=== PATIENT | female | born 1935 | race Caucasian/White ===

== ENCOUNTER 2019-03-23 16:29 | Emergency (ER) | payer MEDICARE, SELFPAY ==
[2019-03-23 16:30] VITALS: BP 140/90; PULSE 84; RESP 16; TEMP 36.8; O2SAT 96; BMI 29.2
--- NOTE | 2019-03-23 16:51 | ED.VIS.GEN ---
History of Present Illness Chief Complaint: Lower Extremity Injury Narrative: Patient presenting due to left hip pain. Patient states that she has been having chronic issues with this for quite some time, typically was able to take Tylenol to help with this. Patient states that since yesterday she is been having increasing pain issues with this. She reports that there are continuous aching pain in her left hip that is worse with weightbearing and causing her to need to use a cane or a walker. She denies any fevers. She denies any chills or night sweats recent injections or surgeries. This is her qagan tayagungin hip. Review of systems otherwise negative. Past Medical History - Allergies and Home Meds Allergies/Adverse Reactions: Allergies lisinopril Allergy (Verified 03/23/19 16:50) Other Sulfa (Sulfonamide Antibiotics) Allergy (Verified 03/23/19 16:32) Hives erythromycin base Adverse Reaction (Verified 03/23/19 16:32) Nausea/Vom/Diarrhea ketorolac tromethamine [From Toradol] Adverse Reaction (Verified 03/23/19 16:32) Nausea/Vom/Diarrhea morphine Adverse Reaction (Verified 03/23/19 16:32) Nausea/Vom/Diarrhea Primary Care Physician: Kareem Granados MD [COURTESY STAFF PHYSICIAN] - Past Medical History: - - COPD Surgical History: - - inguinal hernia repair, tendon repair right ankle Smoking Status: Former smoker - Family History Paternal Family History: Reports: No pertinent history Maternal Family History: Reports: No pertinent history Review of Systems General: Denies: Fever Musculoskeletal: Reports: Extremity Pain Physical Exam Vital Signs/Narrative: Vital Signs Temp Pulse Resp BP Pulse Ox 03/23/19 16:30 98.2 F 84 16 140/90 H 96 General: Well nourished, Well developed, No Acute Distress Head: Normocephalic, Atraumatic Eyes: Perrl, EOMI ENT: Moist mucous membranes, No rhinorrhea Neck: Supple, Nontender Cardiovascular: Regular rate, Regular rhythm, No murmurs Respiratory: No distress, CTA bilaterally, Chest nontender Abdomen: Soft, Nontender, Nondistended, Normal bowel sounds Extremities: - - Lower extremity exam demonstrates some pain over the greater trochanter with palpation. Normal flexion extension internal and external rotation of the hip. No evidence of warmth or erythema. No pain no or limited range of motion of the knee ankle or foot. Normal distal pulses. Skin: Normal color, No rash Neurological: Alert, Oriented x3, Cranial nerves II-XII grossly intact, Normal Strength, Normal Sensation Psychological: Normal affect, Normal Mood Diagnostic/Tx/Re-eval Chest X-Ray - ED: - - 3 view of the hip by my personal interpretation as well as radiology shows degenerative changes no evidence of fracture - Medical Decision Making Patient presented secondary to hip pain. She was given 250 mg of Naprosyn. X-rays show degenerative changes. Patient has no signs of trauma, no symptoms of infection. At this point I feel the patient likely would benefit from low-dose anti-inflammatories and orthopedic follow-up. She will be given orthopedics on-call and discharge. ED Disposition - Plan for ED Patient: Disposition: Home or Assisted Living Diagnosis: Arthritis of left hip Instructions: ED Osteoarthritis Prescriptions: Naproxen 250 mg PO BID #20 tab Prescription Printed Referrals: Son Cabrera DO [STAFF PHYSICIAN] - 1-2 Weeks
--- NOTE | 2019-03-23 17:00 | RAD_ITS ---
STUDY: X-RAY - PELVIS AND LEFT HIP REASON FOR EXAM: Female, 84 years old. Pain, no trauma TECHNIQUE: 3 views of the pelvis and hip. COMPARISON: None. FINDINGS: There is a non-specific bowel gas pattern. Normal visualized soft tissue structures. There is diffuse demineralization of the osseous structures. There is narrowing with cortical sclerosis and osteophyte formation of the sacroiliac joint consistent with degenerative osteoarthritic changes. Normal bilateral superior and inferior pubic rami. Normal pubic symphysis. Normal bilateral ischial tuberosities. Normal visualized femoral head. Normal acetabulum. There is moderate articular joint space narrowing of the hip. RAD/HIP, UNI W/ Pelvis 2-3 Views IMPRESSION: Age consistent degenerative changes, no acute fracture or suspicious osseous lesion. However, and pelvic fractures in patients of this age can be subtle, if there is strong clinical suspicion of a fracture, recommend further evaluation with CT Electronically Signed: Todd Davila MD at 17:22 EDT , Service support ,
[2019-03-23] MEDS: Naproxen 250 MG Tablet PO (17:03)
[2019-03-23 18:19] VITALS: BP 108/86; PULSE 79; RESP 16; O2SAT 96
== END 2019-03-23 18:18 | disposition home or self-care (01) ==
PROVIDERS: Emergency Provider Emergency Medicine; Family Provider Family Medicine; PCP Family Medicine
DX: M16.12 Unilateral primary osteoarthritis, left hip (principal); J44.9 Chronic obstructive pulmonary disease, unspecified; Z79.899 Other long term (current) drug therapy; Z88.2 Allergy status to sulfonamides; Z88.1 Allergy status to other antibiotic agents; Z88.8 Allergy status to other drugs, medicaments and biological substances; Z87.891 Personal history of nicotine dependence
CPT/HCPCS: 73502; 99282

== ENCOUNTER 2021-06-10 10:40 | Day surgery (SDC) | payer MEDICARE, SELFPAY ==
[2021-06-10] MEDS: Lactated Ringers 1,000 ML 15 ML IV (10:50)
[2021-06-10 11:05] VITALS: BP 134/83; PULSE 78; RESP 16; TEMP 36.9; O2SAT 95; BMI 28.5
--- NOTE | 2021-06-10 12:45 | CALC_PTH ---
PATIENT: AMENA NEWTON [place] [facility] [place][id number] AGE/SX: 86/F ROOM: RE06/10/[address]: Dr. Artem Camacho MD : [id number] BED: DIS: 06/10/2021 SPEC #: [id number] RECD: 06/10/21 15:46 STATUS: MORELIA CARRIZALES #: [id number] SCHUYLER: 06/10/21 12:[address]: Artem Camacho DEPT: SURGICAL PATHOLOGY RECD BY: Maryann Grissom ENTERED: 06/11/21 09:08 SP TYPE: Calculi OTHR DR: Dr. Jose Jc MD Tissues: CALCULI Procedures: Surgery Specimen Level I HEADER OPERATION: Cysto, ureteroscopy, laser stone, stent PRE-OP DIAGNOSIS: Left ureteral calculus TISSUE SUBMITTED: Left ureteral calculus fragments of analysis GROSS DIAGNOSIS Left ureteral calculus, removal: Fragments of unremarkable calculi. AM:bart 06/12/2021 COMMENT The calculus is submitted in its entirety for chemical stone analysis. The results from this study will be reported separately. GROSS DESCRIPTION Received without fixative labeled with the patient's name and designated left ureteral calculus fragments. The specimen consists of two irregular fragments of dark fierro calculi measuring in aggregate 0.2 x 0.1 x <0.1 cm. The entire specimen is submitted for stone analysis. / AM:bart 06/11/2021 CPT: 00071
--- NOTE | 2021-06-10 12:48 | PCM.HP.STD ---
HPI - General HPI Narrative AMENA NEWTON, is a 86 F who presents for treatment of a left ureteral calculu, s/p stent placement at [facility], was admitted for sepsis. [facility] Medical History (Updated 06/09/21 @ 09:56 by Catia Ignacio) Asthma CPAP (continuous positive airway pressure) dependence Depression Former smoker Gastric reflux History of echocardiogram History of irregular heartbeat History of steroid therapy History of stress test Hypertension Kidney stones Migraine headache Post-menopausal Pulmonary hypertension Septic shock Shortness of breath on exertion Sleep apnea Thyroid disease Walker as ambulation aid Wears hearing aid Home Medications esomeprazole magnesium [Nexium] 40 mg PO DAILY 11/06/14 [History Last Taken 11/14/15 07:00] sertraline 100 mg PO DAILY 11/06/14 [History Last Taken Unknown] PreserVision AREDS-2 1 ea PO BID 03/15/17 [History Last Taken Unknown] melatonin-pyridoxine HCl (B6) 1 ea PO QHS 03/15/17 [History Last Taken Unknown] acetaminophen [Tylenol] 650 mg PO Q8 tab 03/18/17 [Rx Last Taken Unknown] sumatriptan succinate 100 mg PO .X1 PRN 03/23/19 [History Last Taken Unknown] albuterol sulfate 2 puff INHALATION BID PRN 06/09/21 [History Last Taken Unknown] fluticasone furoate-vilanterol [Breo Ellipta] 1 inh INHALATION QHS 06/09/21 [History Last Taken Unknown] levothyroxine 50 mcg PO DAILY 06/09/21 [History Last Taken Unknown] multivitamin [Hair,Nails and Skin Vitamin] 1 tab PO DAILY 06/09/21 [History Last Taken Unknown] pumgkcqzikkr-xrej-ljtla acid [Centrum] 1 tab PO DAILY 06/09/21 [History Last Taken Unknown] naproxen 40 mg PO BID 06/09/21 [History Last Taken Unknown] polyethylene glycol 3350 [Miralax] 17 g PO DAILY 06/09/21 [History Last Taken Unknown] valsartan 80 mg PO DAILY 06/09/21 [History Last Taken Unknown] acetaminophen [Tylenol] 325 mg PO Q6H PRN #14 tab 06/10/21 [Rx Last Taken Unknown] ciprofloxacin HCl [Cipro] 250 mg PO BID #6 tab 06/10/21 [Rx Last Taken Unknown] Allergy/AdvReac Type Severity Reaction Status Date / Time lisinopril Allergy Other Verified 06/10/21 10:48 Sulfa (Sulfonamide Allergy Hives Verified 06/10/21 10:48 Antibiotics) erythromycin base AdvReac Nausea/Vom/ Verified 06/10/21 10:48 Diarrhea ketorolac tromethamine AdvReac Nausea/Vom/ Verified 06/10/21 10:48 [From Toradol] Diarrhea morphine AdvReac Nausea/Vom/ Verified 06/10/21 10:48 Diarrhea Surgical History (Updated 06/09/21 @ 09:56 by Catia Ignacio) History of total knee replacement Hx of section Hx of colonoscopy Hx of cystoscopy Hx of hysterectomy Hx of surgical procedure Hx of surgical procedure Hx of surgical procedure Hx of surgical procedure Social History (Updated 12/20/17 @ 12:[address] Cookie Barry, DO) Smoking Status: Former smoker Vital Signs Vital Signs Vital Signs: 06/10/21 11:05 Temperature 98.5 F Temperature Source Temporal Pulse Rate 78 Respiratory Rate 16 Respiratory Pattern Normal Blood Pressure 134/83 H Blood Pressure Mean 100 Blood Pressure Source Monitor Blood Pressure Position Semi-Fowlers Blood Pressure Location Left Arm Pulse Ox 95 Oxygen Delivery Method Room Air Weight Weight: 66.224 kg Body Mass Index (BMI) 28.5
--- NOTE | 2021-06-10 12:48 | PCM.DC ---
Discharge Instructions Diet Discharge Diet: No restrictions Activity Discharge Activity: Return to Normal Activity and May Not Drive (while taking narcotic pain medications.) Dressing / Incision Call your doctor if you observe: Fever of 101 or Higher Follow Up Care Please Follow Up With: Artem Camacho MD When: Call [phone] for an appointment Test Results: Test results from this visit will be discussed in further detail at your follow-up appointment, if applicable. Discharge Plan Admission Primary Reason for Your Visit: Laser of left kidney stone Attending Provider: Artem Camacho Primary Care Provider: Jose Jc Discharge Orders/Prescriptions Prescriptions: New acetaminophen [Tylenol] 325 mg tablet 325 mg PO Q6H PRN (Reason: fever or pain) Qty: 14 RF: 0 ciprofloxacin HCl [Cipro] 250 mg tablet 250 mg PO BID Qty: 6 RF: 0 No Action sertraline 100 MG tablet 100 mg PO DAILY RF: 0 esomeprazole magnesium [Nexium] 20 MG capsule 40 mg PO DAILY RF: 0 melatonin-pyridoxine HCl (B6) 1 EACH tablet, IR and ER, biphasic 1 ea PO QHS RF: 0 PreserVision AREDS-2 1 EACH capsule 1 ea PO BID RF: 0 acetaminophen [Tylenol] 325 MG tablet 650 mg PO Q8 RF: 0 sumatriptan succinate 100 MG tablet 100 mg PO .X1 PRN RF: 0 multivitamin [Hair,Nails and Skin Vitamin] Tablet 1 tab PO DAILY RF: 0 valsartan 80 mg tablet 80 mg PO DAILY RF: 0 levothyroxine 50 mcg tablet 50 mcg PO DAILY RF: 0 albuterol sulfate 90 mcg/actuation HFA aerosol inhaler 2 puff INHALATION BID PRN (Reason: ASTHMA) RF: 0 Centrum 18-400 mg-mcg Tablet 1 tab PO DAILY RF: 0 Breo Ellipta 100-25 mcg/dose blister with device 1 inh INHALATION QHS RF: 0 polyethylene glycol 3350 [Miralax] 17 GM powder in packet 17 g PO DAILY RF: 0 naproxen 250 MG tablet 40 mg PO BID RF: 0 Referrals / Follow Up: Artem Camacho MD [STAFF PHYSICIAN] - Jose Jc MD [Primary Care Provider] - Disposition Disposition (needs filled in before D/C Order can be placed): Home, Self Care
--- NOTE | 2021-06-10 13:27 | OP.PCM_ITS ---
Report of Operation Date of Procedure: 06/10/21 Pre-Operative Diagnosis: Distal left ureteral calculi status post stent placeme nt Post-Operative Diagnosis: Same Surgery/Procedure Performed:: Left ureteroscopy laser lithotripsy of stone and removal of stent Description of Surgical Findings:: 86-year-old female was found to have sepsis she underwent cystoscopy and stent placement for urosepsis she now presents for treatment of the stone in the distal left ureter she had a stent placed for the obstructing stone. Patient was taken back to the operating room after smooth induction of general anesthesia she was placed in dorsolithotomy position. The urethra vaginal area prepped and draped in usual sterile fashion went into the bladder with a 21 [place] rigid cystourethroscope grabbed the existing stent from the left side pulled out the meatus advance a 0.038 wire up the left kidney next to the wire I went in with a SlimLine rigid ureteroscope and encountered a 6 mm stone in the distal left ureter I then used a 270 ?m laser fiber and laser the stone little tiny pieces and all the pieces then passed into the bladder we then captured one of the pieces and sent off for analysis. I then inspected all the way up to the kidney there is no up another up there is no obstruction along the course of the ureter no other major stones were seen. I remove the wire I did not put a stent back in since she had a wide open ureter patient's anesthetic was reversed and she was taken back to PACU in good condition she will follow-up about 6 weeks for checkup. Surgeon: brenda Type of Anesthesia: General Drains: none Admit VTE Documentation VTE Present on Admission: No VTE Mechan Device Prophylaxis: SCD's
[2021-06-10 13:45] VITALS: BP 121/61; BP 134/83; PULSE 70; RESP 16; TEMP 36.5; O2SAT 97
[2021-06-10 14:00] VITALS: BP 103/61; BP 134/83; PULSE 67; RESP 16; O2SAT 98
[2021-06-10 14:15] VITALS: BP 113/68; BP 134/83; PULSE 58; RESP 16; O2SAT 97
[2021-06-10 14:30] VITALS: BP 127/60; BP 134/83; PULSE 64; RESP 16; TEMP 36.7; O2SAT 98
[2021-06-10 15:15] VITALS: BP 134/83; BP 138/82; PULSE 111; RESP 16; TEMP 36.8; O2SAT 96
== END 2021-06-10 15:27 | disposition home or self-care (01) ==
LOC: SDC 10:42 → AC 10:44
PROVIDERS: PCP Family Medicine; Referring Provider Urology; Visit Provider Urology
PROC: 0TJ98ZZ Inspection of Ureter, Via Natural or Artificial Opening Endoscopic (ICD-10-PCS; CPT 52352; principal; 2021-06-10 12:35)
DX: N20.1 Calculus of ureter (principal); I10 Essential (primary) hypertension; I27.20 Pulmonary hypertension, unspecified; E03.9 Hypothyroidism, unspecified; J45.909 Unspecified asthma, uncomplicated; G47.30 Sleep apnea, unspecified; K21.9 Gastro-esophageal reflux disease without esophagitis; F32.A Depression, unspecified; F41.9 Anxiety disorder, unspecified; Z78.0 Asymptomatic menopausal state; Z79.1 Long term (current) use of non-steroidal anti-inflammatories (NSAID); Z79.51 Long term (current) use of inhaled steroids; Z79.890 Hormone replacement therapy; Z79.899 Other long term (current) drug therapy; Z87.891 Personal history of nicotine dependence; Z96.659 Presence of unspecified artificial knee joint
CPT/HCPCS: 52353; 82360; 88300; J7120; C1769; J2405

== ENCOUNTER 2022-01-05 11:13 | Emergency (ER) | payer MEDICARE, SELFPAY ==
[2022-01-05 11:14] VITALS: BP 181/102; PULSE 71; RESP 16; TEMP 36.8; O2SAT 98; BMI 29.9
--- NOTE | 2022-01-05 11:35 | EX.ED.DYSGE1 ---
HPI History of Present Illness Chief Complaint: Flank Pain Informant: patient and family Narrative Narrative: 86-year-old female presenting to the emergency room with right flank pain. Patient states symptoms began today she has had a prior history of kidney stones requiring surgery. She denies any changes in urination or bowel movements. She denies any fevers or vomiting. She notes that she has a history of scoliosis and initially thought that perhaps pain was related to her back. [facility] Medical History Asthma CPAP (continuous positive airway pressure) dependence Depression Former smoker Gastric reflux History of echocardiogram History of irregular heartbeat History of steroid therapy History of stress test Hypertension Kidney stones Migraine headache Post-menopausal Pulmonary hypertension Septic shock Shortness of breath on exertion Sleep apnea Thyroid disease Walker as ambulation aid Wears hearing aid Home Medications esomeprazole magnesium 20 mg capsule,delayed release (Nexium) 40 mg PO DAILY 11/06/14 [History Last Taken 11/14/15 07:00] sertraline 100 mg tablet 100 mg PO DAILY 11/06/14 [History Last Taken Unknown] melatonin ER 10 mg-pyridoxine HCl (B6) 10 mg tab, immed-extend release 1 ea PO QHS 03/15/17 [History Last Taken Unknown] vit C 250 mg-vit E 90 mg-zinc 40 mg-copper 1 px-rytvrq-kexcez capsule (PreserVision AREDS-2) 1 ea PO BID 03/15/17 [History Last Taken Unknown] acetaminophen 325 mg tablet (Tylenol) 650 mg PO Q8 03/18/17 [Rx Last Taken Unknown] sumatriptan succinate 100 mg tablet 100 mg PO .X1 PRN 03/23/19 [History Last Taken Unknown] albuterol sulfate 90 mcg/actuation aerosol inhaler 2 puff inhalation BID PRN ASTHMA 06/09/21 [History Last Taken Unknown] fluticasone furoate 100 mcg-vilanterol 25 mcg/dose inhalation powder (Breo Ellipta) 1 inh inhalation QHS 06/09/21 [History Last Taken Unknown] levothyroxine 50 mcg tablet 50 mcg PO DAILY 06/09/21 [History Last Taken Unknown] multivitamin 1 tab PO DAILY 06/09/21 [History Last Taken Unknown] multivitamin-ferrous fumarate-folic acid 18 mg-400 mcg tablet (Centrum) 1 tab PO DAILY 06/09/21 [History Last Taken Unknown] naproxen 250 mg tablet 40 mg PO BID 06/09/21 [History Last Taken Unknown] polyethylene glycol 3350 17 gram oral powder packet (Miralax) 17 g PO DAILY 06/09/21 [History Last Taken Unknown] valsartan 80 mg tablet 80 mg PO DAILY 06/09/21 [History Last Taken Unknown] acetaminophen 325 mg tablet (Tylenol) 325 mg PO Q6H PRN fever or pain #14 tabs 06/10/21 [Rx Last Taken Unknown] Allergy/AdvReac Type Severity Reaction Status Date / Time lisinopril Allergy Other Verified 01/05/22 11:15 Sulfa (Sulfonamide Allergy Hives Verified 01/05/22 11:15 Antibiotics) erythromycin base AdvReac Nausea/Vom/ Verified 01/05/22 11:15 Diarrhea ketorolac tromethamine AdvReac Nausea/Vom/ Verified 01/05/22 11:15 [From Toradol] Diarrhea morphine AdvReac Nausea/Vom/ Verified 01/05/22 11:15 Diarrhea Surgical History History of total knee replacement Hx of section Hx of colonoscopy Hx of cystoscopy Hx of hysterectomy Hx of surgical procedure Hx of surgical procedure Hx of surgical procedure Hx of surgical procedure Social History Smoking Status: Former smoker ROS ROS ED Constitutional Constitutional ED: Denies chills or weight loss Eyes Eyes: Denies change in vision or diplopia ENT ENT ED: Denies ear pain, rhinorrhea or sore throat Cardiovascular Cardiovascular: Denies chest pain, orthopnea, palpitations or racing heartbeat Respiratory/Chest Respiratory/Chest: Denies cough, dyspnea or orthopnea Gastrointestinal Gastrointestinal: Reports nausea; Denies abdominal pain, diarrhea or vomiting Genitourinary Genitourinary ED: Denies dysuria, hematuria or urinary frequency Musculoskeletal Musculoskeletal: Reports other Details: Right flank pain ; Denies arthralgias or myalgias Integumentary Denies abscess or rash Neurologic Neurologic: Denies headache(s) or weakness Psychiatric Psychiatric: Denies anxiety, depression, suicidal ideation or suicidal thoughts Endocrine Endocrinology: Denies polydipsia, polyphagia or polyuria Allergic/Immunologic Allergic/Immunologic ED: Denies mouth swelling, tongue swelling or urticaria EXAM Physical Exam Const Vital Signs: 01/05/22 11:14 01/05/22 13:20 Temperature 98.3 F Temperature Source Temporal Pulse Rate 71 65 Respiratory Rate 16 16 Blood Pressure 181/102 H 140/73 H Blood Pressure Mean 128 95 Pulse Ox 98 96 Oxygen Delivery Method Room Air Room Air Positive well nourished and well developed General Appearance ED: well developed HEENT Reports normocephalic, head/scalp atraumatic and moist mucous membranes Eyes PERRL and EOMs intact bilaterally Neck no lymphadenopathy, supple and no JVD Resp normal respiratory effort and clear to auscultation bilaterally Cardio regular rate, regular rhythm and no murmurs GI normal to inspection, nondistended, normoactive bowel sounds and non-tender Palpation: soft Back/Spine normal ROM General Back: CVA tenderness right Extremity normal to inspection General Extremety ED: Negative for edema General Extremity: Negative for edema Neuro oriented x3 and CN's II-XII intact bilaterally Sensorium / Orientation: alert Motor Exam: strength 5/5 throughout Psych mental status grossly normal Mood & Affect: Negative for depressed or tearful Skin no rashes or lesions noted and no wounds MDM MDM MDM Narrative Medical decision making narrative: White count at 12.7. Creatinine 0.82. Urinalysis is normal. CT of the abdomen pelvis demonstrates 2 to 3 mm mid ureteral stone on the left with some mild associated hydronephrosis. However the patient's pain is on the right. I do not see evidence of sepsis or infection. I will write for the patient have pain medication and nausea medicine. Return if worsening or concerns Lab Data Attestation: I reviewed the patient's lab results. Labs: Laboratory Results - last 24 hr 01/05/22 01/05/22 01/05/22 12:15 12:20 12:20 WBC 12.7 H RBC 5.00 Hgb 14.7 Hct 45.6 MCV 91.2 MCH 29.4 MCHC 32.2 RDW Std Deviation 50.0 H RDW Coeff of John 14.8 H Plt Count 319 MPV 9.3 Immature Gran % (Auto) 1.000 H Neut % (Auto) 68.7 Lymph % (Auto) 22.6 [place] % (Auto) 6.4 Eos % (Auto) 0.7 Baso % (Auto) 0.6 Absolute Neuts (auto) 8.7 H Absolute Lymphs (auto) 2.88 Nucleated RBC % 0 Sodium 140 Potassium 4.1 Chloride 104 Carbon Dioxide 31.0 Anion Gap 5 BUN 14 Creatinine 0.82 Estim Creat Clear Calc 36.03 Est GFR (MDRD) Af Amer 86 Est GFR (MDRD) Non-Af 71 BUN/Creatinine Ratio 17.2 Glucose 105 Calcium 9.1 Urine Color Straw Urine Clarity Clear Urine pH 7.0 Ur Specific [place] 1.005 Urine Protein Negative Urine Glucose (UA) Normal Urine Ketones Negative Urine Occult Blood Negative Urine Nitrite Negative Urine Bilirubin Negative Urine Urobilinogen Normal Ur Leukocyte Esterase Negative Urine RBC 0 SEEN Urine WBC 0 SEEN Ur Squamous Epith Cells 0-5 SEEN Urine Bacteria 0 SEEN Urine Mucus 0 SEEN Radiography Diagnostic Testing: Clinical Impression(s) from Imaging Studies Abdomen/Pelvis CT 01/05/22 12:25 IMPRESSION: 3.3 mm calculus in the midportion of the left ureter causing mild degree of left hydronephrosis. Electronically Signed: Amauri Garg MD at 13:07 EDT , Discharge Plan Triage Chief Complaint: Flank Pain ED Provider: Cordell Rose Dx/Rx/DC Orders Prescriptions: No Action sertraline 100 MG tablet 100 mg PO DAILY esomeprazole magnesium [Nexium] 20 MG capsule 40 mg PO DAILY melatonin-pyridoxine HCl (B6) 1 EACH tablet, IR and ER, biphasic 1 ea PO QHS PreserVision AREDS-2 1 EACH capsule 1 ea PO BID acetaminophen [Tylenol] 325 MG tablet 650 mg PO Q8 0RF sumatriptan succinate 100 MG tablet 100 mg PO .X1 PRN multivitamin [Hair,Nails and Skin Vitamin] Tablet 1 tab PO DAILY valsartan 80 mg tablet 80 mg PO DAILY Label Comments: take 1 tablet by mouth once daily levothyroxine 50 mcg tablet 50 mcg PO DAILY Label Comments: take 1 tablet by mouth once daily albuterol sulfate 90 mcg/actuation HFA aerosol inhaler 2 puff INHALATION BID PRN (Reason: ASTHMA) Label Comments: inhale 2 puffs by mouth four times a day if needed Centrum 18-400 mg-mcg Tablet 1 tab PO DAILY fluticasone furoate-vilanterol [Breo Ellipta] 100-25 mcg/dose blister with device 1 inh INHALATION QHS Label Comments: inhale 1 puff by mouth and INTO THE LUNGS once daily WITH GOOD ORAL CARE AFTER USE polyethylene glycol 3350 [Miralax] 17 GM powder in packet 17 g PO DAILY naproxen 250 MG tablet 40 mg PO BID acetaminophen [Tylenol] 325 mg tablet 325 mg PO Q6H PRN (Reason: fever or pain) Qty: 14 0RF Primary Care Provider: Jose Jc Referrals: Jose Jc MD [Primary Care Provider] -
--- NOTE | 2022-01-05 12:25 | CT_ITS ---
STUDY: CT ABDOMEN AND PELVIS WITHOUT CONTRAST REASON FOR EXAM: Female, 86 years old. Kidney Stone RADIATION DOSAGE (If Supplied By Facility): CTDIvol = ( 10.74 ) mGy, DLP = ( 496.13 ) mGycm TECHNIQUE: Transaxial images were obtained from the dome of the diaphragm to the symphysis pubis without oral contrast, and without intravenous contrast. Sagittal and coronal images were reconstructed. Individualized dose optimization techniques were used for this CT. COMPARISON: Comparison is made with prior study dated 10/25/2016. FINDINGS: The visualized lung bases are unremarkable. Coronary artery calcification. Normal liver. Normal gallbladder and extrahepatic biliary system. Normal spleen. Normal pancreas. Normal bilateral adrenal glands. Stable focal cortical scarring in the upper pole of the right kidney. Mild degree of left hydronephrosis and hydroureter due to a 3.3 mm calculus in the midportion of the left ureter. Moderate sized hiatal hernia. Normal small intestine. There are multiple colonic diverticula consistent with diverticulosis. The appendix is visualized and appears normal. There is diffuse atherosclerotic calcification of the abdominal aorta, without a demonstrated aneurysm. Normal inferior vena cava. Normal retroperitoneum. Normal urinary bladder. There is a left-sided inguinal hernia containing adipose tissue. There are diffuse degenerative changes of the visualized lumbar spine. Levoscoliosis. CT/Abdomen/Pelvis without Cont IMPRESSION: 3.3 mm calculus in the midportion of the left ureter causing mild degree of left hydronephrosis. Electronically Signed: Amauri Garg MD at 13:07 EDT ,
[2022-01-05 12:27] LABS: Bacteria 0 SEEN /hpf (None Seen); Mucous, Urine 0 SEEN /hpf (<or=2+); Red Blood Cells-Urine 0 SEEN /hpf (0-5); White Blood Cells 0 SEEN /hpf (0-5)
[2022-01-05 12:29] LABS: Color, Urine Straw (Yellow); Glucose, Dipstick Normal (Normal); Ketone-Dipstick Negative (Negative); Leukocyte Esterase-Dipstick Negative /ul (Negative); Nitrite-Dipstick Negative (Negative); Occult Blood-Urine Negative /ul (Negative); Protein-Dipstick Negative (Negative); Specific Gravity, Urine 1.005 (1.002-1.030); Urine Bilirubin Dipstick Negative (Negative); Urine Clarity Clear (Clear); Urine Urobilinogen Normal (Normal)
[2022-01-05 12:31] LABS: Absolute Lymphocyte Count 2.88 X10^3/uL (0.83-4.51); Absolute Neutrophil Count 8.7 X10^3/uL (2.0-7.7); Basophil# 0.07 X10^3/uL; Basophil% 0.6 % (0-1); Eosinophil# 0.09 X10^3/uL; Eosinophils% 0.7 % (0-5); Hematocrit 45.6 % (37-47); Hemoglobin 14.7 g/dL (12.0-15.0); Lymphocyte # 2.88 X10^3/ul (0.83-4.51); Lymphocyte % 22.6 % (19-41); Mean Corp Hgb Conc 32.2 g/dL (32-36); Mean Corpuscular Hgb 29.4 pg (27.0-32.0); Mean Corpuscular Volume 91.2 fL (81-99); Mean Platelet Vol. 9.3 fl (6.2-12.0); Monocyte# 0.81 X10^3/uL; Monocyte% 6.4 % (0-10); NRBC Flagged by Analyzer 0 % (0-5); Neutrophil # 8.74 X10^3/uL (2.7-7.7); Neutrophil % 68.7 % (47-70); Platelet Count 319 K/mm3 (150-450); RBC Distribution Width CV 14.8 % (11.6-14.6); White Blood Count 12.7 K/mm3 (4.4-11.0)
[2022-01-05 12:41] LABS: Squamous Epithelial Cells - UA 0-5 SEEN /hpf (5-10)
[2022-01-05 12:45] LABS: Anion Gap 5 (5-15); BUN 14 mg/dL (7-18); BUN/Creat Ratio 17.2 RATIO (10-20); Calcium,Total 9.1 mg/dL (8.5-10.1); Chloride 104 mmol/L (98-107); Creatinine, Serum 0.82 mg/dL (0.55-1.02); EST Glomerular Filtration Rate 71 mL/min (>60); Est Glom Filt Rate - Afr Amer 86 mL/min (>60); Estimated Creatinine Clearance 36.03 ml/min; Glucose 105 mg/dL (74-106); Potassium 4.1 mmol/L (3.5-5.1); Sodium Level 140 mmol/L (136-145)
[2022-01-05 13:20] VITALS: BP 140/73; PULSE 65; RESP 16; O2SAT 96
== END 2022-01-05 13:55 | disposition home or self-care (01) ==
PROVIDERS: Emergency Provider Emergency Medicine; PCP Family Medicine; Visit Provider Emergency Medicine
DX: N13.2 Hydronephrosis with renal and ureteral calculous obstruction (principal); I10 Essential (primary) hypertension; J45.909 Unspecified asthma, uncomplicated; Z79.890 Hormone replacement therapy; Z79.1 Long term (current) use of non-steroidal anti-inflammatories (NSAID); Z79.899 Other long term (current) drug therapy; Z78.0 Asymptomatic menopausal state; Z87.891 Personal history of nicotine dependence; Z87.442 Personal history of urinary calculi
CPT/HCPCS: 74176; 80048; 81001; 85025; 99283; A4216

== ENCOUNTER 2022-01-10 06:54 | Emergency (ER) | payer MEDICARE, SELFPAY ==
[2022-01-10 06:55] VITALS: BP 183/94; PULSE 74; RESP 16; TEMP 36.6; O2SAT 94; BMI 31.4
--- NOTE | 2022-01-10 07:04 | CT_ITS ---
STUDY: CT ABDOMEN AND PELVIS WITH CONTRAST REASON FOR EXAM: Female, 86 years old. RLQ Pain RADIATION DOSAGE (If Supplied By Facility): CTDIvol = ( 15.56 ) mGy, DLP = ( 792.84 ) mGycm TECHNIQUE: Transaxial images were obtained from the dome of the diaphragm to the symphysis pubis without oral contrast. IV 100mL Isovue-300 was administered. Sagittal and coronal images were reconstructed. Individualized dose optimization techniques were used for this CT. COMPARISON: CT of abdomen and pelvis dated January 05, 2022 FINDINGS: Minimal interstitial edema seen in the posterior aspects of the lung bases. Normal liver. Tiny cyst noted in the anterior superior aspect of the right lobe of the liver. No intrahepatic biliary duct dilatation or liver mass. Normal gallbladder and extrahepatic biliary system. Normal spleen. Normal pancreas. Normal bilateral adrenal glands. There is moderate cortical atrophy of the right kidney, consistent with chronic medical renal disease. There is mild cortical atrophy of the left kidney, consistent with chronic medical renal disease. No hydronephrosis or renal masses. No visualized radiopaque stones. Reidentification of several small cysts of the right kidney. Normal visualized stomach. Normal small intestine. There are multiple colonic diverticula consistent with diverticulosis. No bowel dilatation or obstruction. No free air or free fluid. The appendix is visualized and appears normal. There is diffuse atherosclerotic calcification of the abdominal aorta, without a demonstrated aneurysm. Normal inferior vena cava. Normal retroperitoneum. Normal urinary bladder. A small fat-containing left inguinal hernia is present. Tiny fat-containing umbilical hernia noted. Normal osseous structures. CT/Abdomen/Pelvis W IV Cont ONLY IMPRESSION: 1. Colonic diverticulosis. 2. No bowel dilatation or obstruction. No free air or free fluid. 3. The appendix is visualized and appears normal. Electronically Signed: Mauricio Hernandez MD at 8:27 EDT ,
--- NOTE | 2022-01-10 07:06 | EX.ED.DYSGE1 ---
HPI History of Present Illness Chief Complaint: Abd Pain Informant: patient and family Narrative Narrative: 86-year-old female sent into the emergency room with nausea and right lower quadrant abdominal pain. Patient was seen approximately 5 days ago for a kidney stone on the left side. She notes that last evening she developed pain in the right lower quadrant. She states it became significantly worse this morning. She notes pain with walking and touch. No normal urination and bowel movement this morning. She has not anything to eat today. [facility] Medical History Asthma CPAP (continuous positive airway pressure) dependence Depression DVT (deep venous thrombosis) Former smoker Gastric reflux History of echocardiogram History of irregular heartbeat History of steroid therapy History of stress test Hypertension Hypothyroidism Kidney stones Migraine headache Post-menopausal Pulmonary hypertension Septic shock Shortness of breath on exertion Sleep apnea Thyroid disease Walker as ambulation aid Wears hearing aid Home Medications esomeprazole magnesium 20 mg capsule,delayed release (Nexium) 40 mg PO DAILY 11/06/14 [History Last Taken 11/14/15 07:00] sertraline 100 mg tablet 100 mg PO QHS 11/06/14 [History Last Taken Unknown] vit C 250 mg-vit E 90 mg-zinc 40 mg-copper 1 [id number] capsule (PreserVision AREDS-2) 1 ea PO BID 03/15/17 [History Last Taken Unknown] acetaminophen 325 mg tablet (Tylenol) 650 mg PO Q8 03/18/17 [Rx Last Taken Unknown] fluticasone furoate 100 mcg-vilanterol 25 mcg/dose inhalation powder (Breo Ellipta) 1 inh inhalation QHS 06/09/21 [History Last Taken Unknown] levothyroxine 50 mcg tablet 50 mcg PO DAILY 06/09/21 [History Last Taken Unknown] multivitamin 1 tab PO DAILY 06/09/21 [History Last Taken Unknown] multivitamin-ferrous fumarate-folic acid 18 mg-400 mcg tablet (Centrum) 1 tab PO DAILY 06/09/21 [History Last Taken Unknown] polyethylene glycol 3350 17 gram oral powder packet (Miralax) 17 g PO DAILY 06/09/21 [History Last Taken Unknown] valsartan 80 mg tablet 80 mg PO DAILY 06/09/21 [History Last Taken Unknown] acetaminophen 325 mg tablet (Tylenol) 325 mg PO Q6H PRN fever or pain #14 tabs 06/10/21 [Rx Last Taken Unknown] ondansetron 4 mg disintegrating tablet 4 mg PO Q6H PRN PRN Nausea #15 tabs 01/05/22 [Rx Last Taken Unknown] oxycodone-acetaminophen 5 mg-325 mg tablet 1 tab PO Q6H PRN PRN pain 5 days #20 TABLETS 01/05/22 [Rx Last Taken Unknown] melatonin 10 mg tablet 10 mg PO QHS 01/10/22 [History Last Taken Unknown] Allergy/AdvReac Type Severity Reaction Status Date / Time lisinopril Allergy Other Verified 01/05/22 11:15 Sulfa (Sulfonamide Allergy Hives Verified 01/05/22 11:15 Antibiotics) erythromycin base AdvReac Nausea/Vom/ Verified 01/05/22 11:15 Diarrhea ketorolac tromethamine AdvReac Nausea/Vom/ Verified 01/05/22 11:15 [From Toradol] Diarrhea morphine AdvReac Nausea/Vom/ Verified 01/05/22 11:15 Diarrhea Surgical History History of total knee replacement Hx of section Hx of colonoscopy Hx of cystoscopy Hx of hysterectomy Hx of surgical procedure Hx of surgical procedure Hx of surgical procedure Hx of surgical procedure Social History (Updated 01/10/22 @ 07:[address] Cordell Rose DO) Smoking Status: Former smoker substance use type: does not use ROS ROS ED Constitutional Constitutional ED: Denies chills or weight loss Eyes Eyes: Denies change in vision or diplopia ENT ENT ED: Denies ear pain, rhinorrhea or sore throat Cardiovascular Cardiovascular: Denies chest pain, orthopnea, palpitations or racing heartbeat Respiratory/Chest Respiratory/Chest: Denies cough, dyspnea or orthopnea Gastrointestinal Gastrointestinal: Reports abdominal pain and nausea; Denies diarrhea or vomiting Genitourinary Genitourinary ED: Denies dysuria, hematuria or urinary frequency Musculoskeletal Musculoskeletal: Denies arthralgias or myalgias Integumentary Denies abscess or rash Neurologic Neurologic: Denies headache(s) or weakness Psychiatric Psychiatric: Denies anxiety, depression, suicidal ideation or suicidal thoughts Endocrine Endocrinology: Denies polydipsia, polyphagia or polyuria Allergic/Immunologic Allergic/Immunologic ED: Denies mouth swelling, tongue swelling or urticaria EXAM Physical Exam Const Vital Signs: 01/10/22 06:55 01/10/22 08:25 Temperature 97.8 F Temperature Source Oral Pulse Rate 74 78 Respiratory Rate 16 16 Blood Pressure 183/94 H 181/72 H Blood Pressure Mean 123 108 Pulse Ox 94 96 Oxygen Delivery Method Room Air Room Air MDM MDM MDM Narrative Medical decision making narrative: Has a normal white count at 9.6. CMP and lipase normal urinalysis normal. CT of the abdomen pelvis was obtained. Normal appendix. Colonic diverticulosis noted. Patient received Dilaudid for pain. Zofran for nausea. At this point I do not see an obvious cause for the patient's pain. What interesting is this is the same area that the patient was saying was hurting 5 days ago when she was diagnosed with a distal ureteral stone on the left however. That stone appears to have passed. At this point patient will be discharged home she has pain medication will return if worsening or continued symptoms. Lab Data Attestation: I reviewed the patient's lab results. Labs: Laboratory Results - last 24 hr 01/10/22 01/10/22 01/10/22 07:18 07:18 07:39 WBC 9.6 RBC 4.68 Hgb 13.4 Hct 43.9 MCV 93.8 MCH 28.6 MCHC 30.5 L D RDW Std Deviation 51.4 H RDW Coeff of John 14.8 H Plt Count 249 MPV 9.4 Immature Gran % (Auto) 0.600 Neut % (Auto) 73.5 H Lymph % (Auto) 17.1 L [place] % (Auto) 7.2 Eos % (Auto) 1.1 Baso % (Auto) 0.5 Absolute Neuts (auto) 7.1 Absolute Lymphs (auto) 1.64 Nucleated RBC % 0 Sodium 138 Potassium 4.2 Chloride 103 Carbon Dioxide 29.0 Anion Gap 6 BUN 13 Creatinine 0.71 Estim Creat Clear Calc 29.54 Est GFR (MDRD) Af Amer 101 Est GFR (MDRD) Non-Af 83 BUN/Creatinine Ratio 18.4 Glucose 134 H Calcium 8.8 Total Bilirubin 0.20 AST 30 ALT 20 Alkaline Phosphatase 108 Total Protein 6.5 Albumin 3.1 L Globulin 3.4 Albumin/Globulin Ratio 0.9 Lipase 151 Urine Color Yellow Urine Clarity Clear Urine pH 6.5 Ur Specific [place] 1.010 Urine Protein Negative Urine Glucose (UA) Normal Urine Ketones Negative Urine Occult Blood 10 H Urine Nitrite Negative Urine Bilirubin Negative Urine Urobilinogen Normal Ur Leukocyte Esterase 25 H Urine RBC 0 SEEN Urine WBC 0 SEEN Ur Squamous Epith Cells 0 SEEN Urine Bacteria 0 SEEN Urine Mucus 0 SEEN Radiography Diagnostic Testing: Clinical Impression(s) from Imaging Studies Abdomen/Pelvis CT 01/10/22 07:04 IMPRESSION: 1. Colonic diverticulosis. 2. No bowel dilatation or obstruction. No free air or free fluid. 3. The appendix is visualized and appears normal. Electronically Signed: Mauricio Hernandez MD at 8:27 EDT , Discharge Plan Triage Chief Complaint: Abd Pain ED Provider: Cordell Rose Dx/Rx/DC Orders Clinical Impression: Abdominal pain Instructions: ED Abdominal Pain Unkn Cause Fem Prescriptions: No Action sertraline 100 MG tablet 100 mg PO QHS esomeprazole magnesium [Nexium] 20 MG capsule 40 mg PO DAILY PreserVision AREDS-2 1 EACH capsule 1 ea PO BID acetaminophen [Tylenol] 325 MG tablet 650 mg PO Q8 0RF multivitamin [Hair,Nails and Skin Vitamin] Tablet 1 tab PO DAILY valsartan 80 mg tablet 80 mg PO DAILY Label Comments: take 1 tablet by mouth once daily levothyroxine 50 mcg tablet 50 mcg PO DAILY Label Comments: take 1 tablet by mouth once daily Centrum 18-400 mg-mcg Tablet 1 tab PO DAILY fluticasone furoate-vilanterol [Breo Ellipta] 100-25 mcg/dose blister with device 1 inh INHALATION QHS Label Comments: inhale 1 puff by mouth and INTO THE LUNGS once daily WITH GOOD ORAL CARE AFTER USE polyethylene glycol 3350 [Miralax] 17 GM powder in packet 17 g PO DAILY acetaminophen [Tylenol] 325 mg tablet 325 mg PO Q6H PRN (Reason: fever or pain) Qty: 14 0RF oxycodone-acetaminophen [oxycodone-acetaminophen] 5-325 mg tablet 1 tab PO Q6H PRN PRN (Reason: pain) 5 Days Qty: 20 0RF ondansetron [ondansetron] 4 mg tablet,disintegrating 4 mg PO Q6H PRN PRN (Reason: Nausea) Qty: 15 0RF melatonin 10 mg Tablet 10 mg PO QHS Primary Care Provider: Jose Jc Referrals: Jose Jc MD [Primary Care Provider] - 1-2 Days if not improving Disposition Disposition: Home, Self Care
[2022-01-10] MEDS: 0.9% Normal Saline 1,000 ML 125 ML IV (07:15)
[2022-01-10] MEDS: Ondansetron 4 MG/2 ML Vial IV (07:16)
[2022-01-10] MEDS: HYDROmorphone 1 MG/ML Syringe 0.5 MG IV (07:16)
[2022-01-10 07:26] LABS: Absolute Lymphocyte Count 1.64 X10^3/uL (0.83-4.51); Absolute Neutrophil Count 7.1 X10^3/uL (2.0-7.7); Basophil# 0.05 X10^3/uL; Basophil% 0.5 % (0-1); Eosinophil# 0.11 X10^3/uL; Eosinophils% 1.1 % (0-5); Hematocrit 43.9 % (37-47); Hemoglobin 13.4 g/dL (12.0-15.0); Lymphocyte # 1.64 X10^3/ul (0.83-4.51); Lymphocyte % 17.1 % (19-41); Mean Corp Hgb Conc 30.5 g/dL (32-36); Mean Corpuscular Hgb 28.6 pg (27.0-32.0); Mean Corpuscular Volume 93.8 fL (81-99); Mean Platelet Vol. 9.4 fl (6.2-12.0); Monocyte# 0.69 X10^3/uL; Monocyte% 7.2 % (0-10); NRBC Flagged by Analyzer 0 % (0-5); Neutrophil # 7.05 X10^3/uL (2.7-7.7); Neutrophil % 73.5 % (47-70); Platelet Count 249 K/mm3 (150-450); RBC Distribution Width CV 14.8 % (11.6-14.6); RBC Distribution Width SD 51.4 fl (35.1-43.9); Red Blood Count 4.68 M/mm3 (4.2-5.4); White Blood Count 9.6 K/mm3 (4.4-11.0)
[2022-01-10 07:44] LABS: Bacteria 0 SEEN /hpf (None Seen); Mucous, Urine 0 SEEN /hpf (<or=2+); Red Blood Cells-Urine 0 SEEN /hpf (0-5); Squamous Epithelial Cells - UA 0 SEEN /hpf (5-10); White Blood Cells 0 SEEN /hpf (0-5)
[2022-01-10 07:45] LABS: ALB/GLOB Ratio 0.9 RATIO (0.9-2.4); AST(SGOT) 30 U/L (15-37); Alanine Aminotransfer ALT/SGPT 20 U/L (13-56); Albumin, Serum 3.1 g/dL (3.2-5.0); Alkaline Phosphatase 108 U/L (45-117); Anion Gap 6 (5-15); BUN 13 mg/dL (7-18); BUN/Creat Ratio 18.4 RATIO (10-20); Calcium,Total 8.8 mg/dL (8.5-10.1); Chloride 103 mmol/L (98-107); Creatinine, Serum 0.71 mg/dL (0.55-1.02); EST Glomerular Filtration Rate 83 mL/min (>60); Est Glom Filt Rate - Afr Amer 101 mL/min (>60); Estimated Creatinine Clearance 29.54 ml/min; Globulin 3.4 g/dL (2.2-4.2); Glucose 134 mg/dL (74-106); Lipase 151 U/L (73-393); Potassium 4.2 mmol/L (3.5-5.1); Protein, Total 6.5 g/dL (6.4-8.2); Sodium Level 138 mmol/L (136-145)
[2022-01-10 07:48] LABS: Color, Urine Yellow (Yellow); Glucose, Dipstick Normal (Normal); Ketone-Dipstick Negative (Negative); Leukocyte Esterase-Dipstick 25 /ul (Negative); Nitrite-Dipstick Negative (Negative); Occult Blood-Urine 10 /ul (Negative); Protein-Dipstick Negative (Negative); Urine Bilirubin Dipstick Negative (Negative); Urine Clarity Clear (Clear); Urine Urobilinogen Normal (Normal); Urine pH 6.5 (5.0 - 8.0)
[2022-01-10 08:14] VITALS: O2SAT 97
[2022-01-10 08:25] VITALS: BP 181/72; PULSE 78; RESP 16; O2SAT 96
[2022-01-10] MEDS: HYDROmorphone 0.5 MG/0.5 ML SYRINGE IV (08:54)
== END 2022-01-10 08:59 | disposition home or self-care (01) ==
PROVIDERS: Emergency Provider Emergency Medicine; PCP Family Medicine; Visit Provider Emergency Medicine
DX: R10.31 Right lower quadrant pain (principal); K57.30 Diverticulosis of large intestine without perforation or abscess without bleeding; I10 Essential (primary) hypertension; E03.9 Hypothyroidism, unspecified; J45.909 Unspecified asthma, uncomplicated; K21.9 Gastro-esophageal reflux disease without esophagitis; F32.A Depression, unspecified; Z79.890 Hormone replacement therapy; Z79.899 Other long term (current) drug therapy; Z78.0 Asymptomatic menopausal state; Z87.891 Personal history of nicotine dependence
CPT/HCPCS: 74177; 80053; 81001; 83690; 85025; 96361; 96374; 96375; 96376; 99282; J7030; Q9967; A4216; J2405

== ENCOUNTER 2022-01-11 10:04 | Emergency (ER) | payer MEDICARE, SELFPAY ==
[2022-01-11 10:05] VITALS: BP 158/81; PULSE 72; RESP 14; TEMP 36.9; O2SAT 97; BMI 30.2
--- NOTE | 2022-01-11 10:20 | EX.ED.DYSGE1 ---
HPI History of Present Illness Chief Complaint: Abd Pain Informant: patient and family Narrative Narrative: 86-year-old female presenting to the emergency department for the third time in 6 days with right lower quadrant abdominal pain. Patient has had 2 negative CAT scans (1 with contrast 1 without) of this area and yesterday had normal blood work and normal urine in addition to the contrasted CT. Nothing has changed between yesterday and today but family states they are having problems managing her pain with oxycodone. Patient also states that she is not tasting bile and has a lot more belching than normal. She is moving her bowels and urinating normally. [facility] Medical History Asthma CPAP (continuous positive airway pressure) dependence Depression DVT (deep venous thrombosis) Former smoker Gastric reflux History of echocardiogram History of irregular heartbeat History of steroid therapy History of stress test Hypertension Hypothyroidism Kidney stones Migraine headache Post-menopausal Pulmonary hypertension Septic shock Shortness of breath on exertion Sleep apnea Thyroid disease Walker as ambulation aid Wears hearing aid Home Medications esomeprazole magnesium 20 mg capsule,delayed release (Nexium) 40 mg PO DAILY 11/06/14 [History Last Taken 11/14/15 07:00] sertraline 100 mg tablet 100 mg PO QHS 11/06/14 [History Last Taken Unknown] vit C 250 mg-vit E 90 mg-zinc 40 mg-copper 1 [id number] capsule (PreserVision AREDS-2) 1 ea PO BID 03/15/17 [History Last Taken Unknown] acetaminophen 325 mg tablet (Tylenol) 650 mg PO Q8 03/18/17 [Rx Last Taken Unknown] fluticasone furoate 100 mcg-vilanterol 25 mcg/dose inhalation powder (Breo Ellipta) 1 inh inhalation QHS 06/09/21 [History Last Taken Unknown] levothyroxine 50 mcg tablet 50 mcg PO DAILY 06/09/21 [History Last Taken Unknown] multivitamin 1 tab PO DAILY 06/09/21 [History Last Taken Unknown] multivitamin-ferrous fumarate-folic acid 18 mg-400 mcg tablet (Centrum) 1 tab PO DAILY 06/09/21 [History Last Taken Unknown] polyethylene glycol 3350 17 gram oral powder packet (Miralax) 17 g PO DAILY 06/09/21 [History Last Taken Unknown] valsartan 80 mg tablet 80 mg PO DAILY 06/09/21 [History Last Taken Unknown] acetaminophen 325 mg tablet (Tylenol) 325 mg PO Q6H PRN fever or pain #14 tabs 06/10/21 [Rx Last Taken Unknown] ondansetron 4 mg disintegrating tablet 4 mg PO Q6H PRN PRN Nausea #15 tabs 01/05/22 [Rx Last Taken Unknown] oxycodone-acetaminophen 5 mg-325 mg tablet 1 tab PO Q6H PRN PRN pain 5 days #20 TABLETS 01/05/22 [Rx Last Taken Unknown] melatonin 10 mg tablet 10 mg PO QHS 01/10/22 [History Last Taken Unknown] dicyclomine 20 mg tablet 20 mg PO TID PRN abdominal pain #20 tabs 01/11/22 [Rx Last Taken Unknown] magnesium citrate 300 ml PO X1 PRN constipation #2 BOTTLES 01/11/22 [Rx Last Taken Unknown] Allergy/AdvReac Type Severity Reaction Status Date / Time lisinopril Allergy Other Verified 01/11/22 10:07 Sulfa (Sulfonamide Allergy Hives Verified 01/11/22 10:07 Antibiotics) erythromycin base AdvReac Nausea/Vom/ Verified 01/11/22 10:07 Diarrhea ketorolac tromethamine AdvReac Nausea/Vom/ Verified 01/11/22 10:07 [From Toradol] Diarrhea morphine AdvReac Nausea/Vom/ Verified 01/11/22 10:07 Diarrhea Surgical History History of total knee replacement Hx of section Hx of colonoscopy Hx of cystoscopy Hx of hysterectomy Hx of surgical procedure Hx of surgical procedure Hx of surgical procedure Hx of surgical procedure Social History Smoking Status: Former smoker substance use type: does not use ROS ROS ED Constitutional Constitutional ED: Denies chills or weight loss Eyes Eyes: Denies change in vision or diplopia ENT ENT ED: Denies ear pain, rhinorrhea or sore throat Cardiovascular Cardiovascular: Denies chest pain, orthopnea, palpitations or racing heartbeat Respiratory/Chest Respiratory/Chest: Denies cough, dyspnea or orthopnea Gastrointestinal Gastrointestinal: Reports abdominal pain, nausea and other Details: belching ; Denies constipation, diarrhea or vomiting Genitourinary Genitourinary ED: Denies dysuria, hematuria or urinary frequency Musculoskeletal Musculoskeletal: Denies arthralgias or myalgias Integumentary Denies abscess or rash Neurologic Neurologic: Denies headache(s) or weakness Psychiatric Psychiatric: Denies anxiety, depression, suicidal ideation or suicidal thoughts Endocrine Endocrinology: Denies polydipsia, polyphagia or polyuria Allergic/Immunologic Allergic/Immunologic ED: Denies mouth swelling, tongue swelling or urticaria EXAM Physical Exam Const Vital Signs: 01/11/22 10:05 Temperature 98.4 F Temperature Source Temporal Pulse Rate 72 Respiratory Rate 14 Blood Pressure 158/81 H Blood Pressure Mean 106 Pulse Ox 97 Oxygen Delivery Method Room Air Positive well nourished and well developed General Appearance ED: well developed HEENT Reports normocephalic, head/scalp atraumatic and moist mucous membranes Eyes PERRL and EOMs intact bilaterally Neck no lymphadenopathy, supple and no JVD Resp normal respiratory effort and clear to auscultation bilaterally Cardio regular rate, regular rhythm and no murmurs GI Auscultation: normoactive bowel sounds Palpation: soft, tender RLQ, guarding and rebound tenderness present; Negative for mass Back/Spine no CVA tenderness and normal ROM Extremity normal to inspection General Extremety ED: Negative for edema General Extremity: Negative for edema Neuro oriented x3 and CN's II-XII intact bilaterally Sensorium / Orientation: alert Motor Exam: strength 5/5 throughout Psych mental status grossly normal Mood & Affect: Negative for depressed or tearful Skin no rashes or lesions noted and no wounds MDM MDM MDM Narrative Medical decision making narrative: White count went from 9-11. CMP glucose of 120 lipase 128. Because of the rise in the white blood cell count and the concern for appendicitis CT of the abdomen pelvis was ordered again. This time we performed it with oral and IV contrast. This does not show anything acute. There is a moderate amount of stool in the colon. Perhaps the moderate amount of stool in the right hemicolon is the source of her pain. She did get good relief of her symptoms with Bentyl but now it starting to come back. Advised to drink a bottle or 2 of magnesium citrate I can write for some additional Bentyl but given that that decreases colonic contraction would be advisable to limit that use. Lab Data Attestation: I reviewed the patient's lab results. Labs: Laboratory Results - last 24 hr 01/11/22 01/11/22 10:30 10:30 WBC 11.7 H RBC 4.85 Hgb 14.0 Hct 45.3 MCV 93.4 MCH 28.9 MCHC 30.9 L RDW Std Deviation 51.0 H RDW Coeff of John 14.8 H Plt Count 256 MPV 9.3 Immature Gran % (Auto) 0.400 Neut % (Auto) 76.1 H Lymph % (Auto) 16.6 L [place] % (Auto) 5.7 Eos % (Auto) 0.9 Baso % (Auto) 0.3 Absolute Neuts (auto) 8.9 H Absolute Lymphs (auto) 1.93 Nucleated RBC % 0 Sodium 139 Potassium 4.1 Chloride 102 Carbon Dioxide 30.0 Anion Gap 7 BUN 8 Creatinine 0.62 Estim Creat Clear Calc 29.54 Est GFR (MDRD) Af Amer 116 Est GFR (MDRD) Non-Af 96 BUN/Creatinine Ratio 12.8 Glucose 120 H Calcium 9.1 Total Bilirubin 0.40 AST 17 ALT 18 Alkaline Phosphatase 108 Total Protein 6.5 Albumin 3.2 Globulin 3.3 Albumin/Globulin Ratio 1.0 Lipase 128 Radiography Diagnostic Testing: Clinical Impression(s) from Imaging Studies Abdomen/Pelvis CT 01/11/22 10:42 IMPRESSION: Stable 5.4 mm hypodense nodule in the anterior aspect of the right lobe of liver. Diverticulosis of the sigmoid colon. Moderate amount of fecal material is seen in the colon. Electronically Signed: Amauri Garg MD at 12:51 EDT , Discharge Plan Triage Chief Complaint: Abd Pain ED Provider: Cordell Rose Dx/Rx/DC Orders Clinical Impression: Abdominal pain Prescriptions: New dicyclomine 20 mg tablet 20 mg PO TID PRN (Reason: abdominal pain) Qty: 20 0RF magnesium citrate Solution 300 ml PO X1 PRN (Reason: constipation) Qty: 2 0RF No Action sertraline 100 MG tablet 100 mg PO QHS esomeprazole magnesium [Nexium] 20 MG capsule 40 mg PO DAILY PreserVision AREDS-2 1 EACH capsule 1 ea PO BID acetaminophen [Tylenol] 325 MG tablet 650 mg PO Q8 0RF multivitamin [Hair,Nails and Skin Vitamin] Tablet 1 tab PO DAILY valsartan 80 mg tablet 80 mg PO DAILY Label Comments: take 1 tablet by mouth once daily levothyroxine 50 mcg tablet 50 mcg PO DAILY Label Comments: take 1 tablet by mouth once daily Centrum 18-400 mg-mcg Tablet 1 tab PO DAILY fluticasone furoate-vilanterol [Breo Ellipta] 100-25 mcg/dose blister with device 1 inh INHALATION QHS Label Comments: inhale 1 puff by mouth and INTO THE LUNGS once daily WITH GOOD ORAL CARE AFTER USE polyethylene glycol 3350 [Miralax] 17 GM powder in packet 17 g PO DAILY acetaminophen [Tylenol] 325 mg tablet 325 mg PO Q6H PRN (Reason: fever or pain) Qty: 14 0RF oxycodone-acetaminophen [oxycodone-acetaminophen] 5-325 mg tablet 1 tab PO Q6H PRN PRN (Reason: pain) 5 Days Qty: 20 0RF ondansetron [ondansetron] 4 mg tablet,disintegrating 4 mg PO Q6H PRN PRN (Reason: Nausea) Qty: 15 0RF melatonin 10 mg Tablet 10 mg PO QHS Primary Care Provider: Jose Jc Referrals: Jose Jc MD [Primary Care Provider] - 2 Days Disposition Disposition: Home, Self Care
[2022-01-11] MEDS: Dicyclomine 20 MG/2 ML Vial IM (10:36)
[2022-01-11 10:38] LABS: Absolute Lymphocyte Count 1.93 X10^3/uL (0.83-4.51); Absolute Neutrophil Count 8.9 X10^3/uL (2.0-7.7); Basophil# 0.04 X10^3/uL; Basophil% 0.3 % (0-1); Eosinophils% 0.9 % (0-5); Hematocrit 45.3 % (37-47); Lymphocyte # 1.93 X10^3/ul (0.83-4.51); Lymphocyte % 16.6 % (19-41); Mean Corp Hgb Conc 30.9 g/dL (32-36); Mean Corpuscular Hgb 28.9 pg (27.0-32.0); Mean Corpuscular Volume 93.4 fL (81-99); Mean Platelet Vol. 9.3 fl (6.2-12.0); Monocyte# 0.67 X10^3/uL; Monocyte% 5.7 % (0-10); NRBC Flagged by Analyzer 0 % (0-5); Neutrophil # 8.87 X10^3/uL (2.7-7.7); Neutrophil % 76.1 % (47-70); Platelet Count 256 K/mm3 (150-450); RBC Distribution Width CV 14.8 % (11.6-14.6); Red Blood Count 4.85 M/mm3 (4.2-5.4); White Blood Count 11.7 K/mm3 (4.4-11.0)
--- NOTE | 2022-01-11 10:42 | CT_ITS ---
STUDY: CT ABDOMEN AND PELVIS WITH CONTRAST REASON FOR EXAM: Female, 86 years old. rlq abd pain for one week. History of kidney stones. RADIATION DOSAGE (If Supplied By Facility): CTDIvol = ( 16.62 ) mGy, DLP = ( 1525.92 ) mGycm TECHNIQUE: Transaxial images were obtained from the dome of the diaphragm to the symphysis pubis with oral contrast. Oral and amp; IV Gastrografin and amp; 100mL Isovue-300 was administered. Sagittal and coronal images were reconstructed. Individualized dose optimization techniques were used for this CT. COMPARISON: Comparison is made with prior study dated 01/10/2022. FINDINGS: Stable mild degree of increased markings at the lung bases suggestive of atelectasis. Coronary artery calcification. There is decreased attenuation of the liver consistent with steatosis. Hepatomegaly. Stable 5.4 mm hypodense nodule in the anterior aspect of the right lobe of liver. This may represent either a small cyst or small hemangioma. Normal gallbladder and extrahepatic biliary system. Normal spleen. Normal pancreas. Normal bilateral adrenal glands. Normal right kidney. Normal left kidney. There is a moderate hiatal hernia. Normal small intestine. Moderate amount of fecal material is seen in the colon. Sigmoid diverticulosis. There is non-visualization of the appendix. There is diffuse atherosclerotic calcification of the abdominal aorta, without a demonstrated aneurysm. Normal inferior vena cava. Normal retroperitoneum. Distended urinary bladder. There is absence of the uterus consistent with a prior hysterectomy. Normal abdominal wall. There are diffuse degenerative changes of the visualized lumbar spine. Levoscoliosis. CT/Abdomen/Pelvis WITH Contrast IMPRESSION: Stable 5.4 mm hypodense nodule in the anterior aspect of the right lobe of liver. Diverticulosis of the sigmoid colon. Moderate amount of fecal material is seen in the colon. Electronically Signed: Amauri Garg MD at 12:51 EDT ,
[2022-01-11 10:54] LABS: AST(SGOT) 17 U/L (15-37); Alanine Aminotransfer ALT/SGPT 18 U/L (13-56); Albumin, Serum 3.2 g/dL (3.2-5.0); Alkaline Phosphatase 108 U/L (45-117); Anion Gap 7 (5-15); BUN 8 mg/dL (7-18); BUN/Creat Ratio 12.8 RATIO (10-20); Calcium,Total 9.1 mg/dL (8.5-10.1); Chloride 102 mmol/L (98-107); Creatinine, Serum 0.62 mg/dL (0.55-1.02); EST Glomerular Filtration Rate 96 mL/min (>60); Est Glom Filt Rate - Afr Amer 116 mL/min (>60); Estimated Creatinine Clearance 29.54 ml/min; Globulin 3.3 g/dL (2.2-4.2); Glucose 120 mg/dL (74-106); Lipase 128 U/L (73-393); Potassium 4.1 mmol/L (3.5-5.1); Protein, Total 6.5 g/dL (6.4-8.2); Sodium Level 139 mmol/L (136-145)
[2022-01-11 13:34] VITALS: BP 162/93; PULSE 71; RESP 15; O2SAT 98
[2022-01-11] MEDS: HYDROmorphone 0.5 MG/0.5 ML SYRINGE IV (13:37)
== END 2022-01-11 13:40 | disposition home or self-care (01) ==
PROVIDERS: Emergency Provider Emergency Medicine; PCP Family Medicine; Visit Provider Emergency Medicine
DX: K57.32 Diverticulitis of large intestine without perforation or abscess without bleeding (principal); I10 Essential (primary) hypertension; E03.9 Hypothyroidism, unspecified; J45.909 Unspecified asthma, uncomplicated; K21.9 Gastro-esophageal reflux disease without esophagitis; F32.A Depression, unspecified; K76.89 Other specified diseases of liver; Z87.891 Personal history of nicotine dependence; Z79.899 Other long term (current) drug therapy
CPT/HCPCS: 74177; 80053; 83690; 85025; 96372; 96374; 99283; Q9967; A4216

== ENCOUNTER 2022-01-20 14:05 | Emergency (ER) | payer MEDICARE, SELFPAY ==
[2022-01-20 14:07] VITALS: BP 99/48; PULSE 71; RESP 16; TEMP 36.8; O2SAT 95; BMI 29.7
[2022-01-20 14:38] VITALS: BP 115/54; PULSE 73
--- NOTE | 2022-01-20 15:13 | CT_ITS ---
INDICATION: flank pain EXAMINATION: CT Abdomen And Pelvis W/O Contrast Injection TECHNIQUE: Helically acquired images were obtained of the abdomen and pelvis without the use of IV contrast. A radiation dose optimization technique was used for this scan. Oral contrast: None. COMPARISON: 01/11/2022 FINDINGS: Evaluation of the solid organs and vascular structures is limited without intravenous contrast. Visualized lung bases: Unremarkable Liver: Diffusely hypodense consistent with fatty liver. Gallbladder: Unremarkable Spleen: Unremarkable Pancreas: Unremarkable Adrenal Glands: Unremarkable Kidneys: Unremarkable Vasculature: Unremarkable GI Tract: Scattered diverticula throughout the colon without evidence of inflammation. Lymphadenopathy: None Peritoneum: No ascites. Bladder: Unremarkable Reproductive organs: Unremarkable Bones/Soft tissues: There are diffuse degenerative changes of the spine. CT/Abdomen/Pelvis without Cont IMPRESSION: No acute abnormalities in the abdomen or pelvis. Diverticulosis. Fatty liver. Electronically Signed: Fazal Epperson MD at 16:23 EDT ,
--- NOTE | 2022-01-20 15:14 | EDS_ITS ---
HPI History of Present Illness Chief Complaint: Flank Pain Informant: patient and family Onset/Context/Timing Onset: Weeks Context: Gradual Onset Timing: Waxes and wanes Current Severity: Mild Maximum Severity: Moderate Narrative Narrative: Patient presents secondary to right flank pain. She reportedly has been having waxing and waning right flank pain since January 05. She is been seen in the ER multiple times for the same. Although CT scans x2 were read as no evidence of kidney stone ED doc initially thought that she may have a small stone on the left. Family states they called Dr. Camacho's office and asked them to review the images and were told in fact there was no stone. She continues to have waxing and waning pain but thought it may be secondary to constipation or her scoliosis. Family states they received a phone call from Dr. Camacho's office this morning but states that after further review of the CT scan there is a kidney stone blocking the left kidney and she needs to go to the emergency room. Patient is concerned secondary to a history of sepsis from a kidney stone with urinary infection in May of last year. She has had no fever or chills. She denies any urinary symptoms. [facility] Medical History Asthma CPAP (continuous positive airway pressure) dependence Depression DVT (deep venous thrombosis) Former smoker Gastric reflux History of echocardiogram History of irregular heartbeat History of steroid therapy History of stress test Hypertension Hypothyroidism Kidney stones Migraine headache Post-menopausal Pulmonary hypertension Septic shock Shortness of breath on exertion Sleep apnea Thyroid disease Walker as ambulation aid Wears hearing aid Home Medications esomeprazole magnesium 20 mg capsule,delayed release (Nexium) 40 mg PO DAILY 11/06/14 [History Last Taken 11/14/15 07:00] sertraline 100 mg tablet 100 mg PO QHS 11/06/14 [History Last Taken Unknown] vit C 250 mg-vit E 90 mg-zinc 40 mg-copper 1 [id number] capsule (PreserVision AREDS-2) 1 ea PO BID 03/15/17 [History Last Taken Unknown] acetaminophen 325 mg tablet (Tylenol) 650 mg PO Q8 03/18/17 [Rx Last Taken Unknown] fluticasone furoate 100 mcg-vilanterol 25 mcg/dose inhalation powder (Breo Ellipta) 1 inh inhalation QHS 06/09/21 [History Last Taken Unknown] levothyroxine 50 mcg tablet 50 mcg PO DAILY 06/09/21 [History Last Taken Unknown] polyethylene glycol 3350 17 gram oral powder packet (Miralax) 17 g PO DAILY 06/09/21 [History Last Taken Unknown] valsartan 80 mg tablet 80 mg PO DAILY 06/09/21 [History Last Taken Unknown] acetaminophen 325 mg tablet (Tylenol) 325 mg PO Q6H PRN fever or pain #14 tabs 06/10/21 [Rx Last Taken Unknown] ondansetron 4 mg disintegrating tablet 4 mg PO Q6H PRN PRN Nausea #15 tabs 01/05/22 [Rx Last Taken Unknown] oxycodone-acetaminophen 5 mg-325 mg tablet 1 tab PO Q6H PRN PRN pain 5 days #20 TABLETS 01/05/22 [Rx Last Taken Unknown] melatonin 10 mg tablet 10 mg PO QHS 01/10/22 [History Last Taken Unknown] magnesium citrate 300 ml PO X1 PRN constipation #2 BOTTLES 01/11/22 [Rx Last Taken Unknown] Allergy/AdvReac Type Severity Reaction Status Date / Time lisinopril Allergy Other Verified 01/20/22 14:12 Sulfa (Sulfonamide Allergy Hives Verified 01/20/22 14:12 Antibiotics) erythromycin base AdvReac Nausea/Vom/ Verified 01/20/22 14:12 Diarrhea ketorolac tromethamine AdvReac Nausea/Vom/ Verified 01/20/22 14:12 [From Toradol] Diarrhea morphine AdvReac Nausea/Vom/ Verified 01/20/22 14:12 Diarrhea Surgical History History of total knee replacement Hx of section Hx of colonoscopy Hx of cystoscopy Hx of hysterectomy Hx of surgical procedure Hx of surgical procedure Hx of surgical procedure Hx of surgical procedure Social History Smoking Status: Former smoker substance use type: does not use ROS ROS ED Constitutional Constitutional ED: Denies chills or fever(s) Eyes Eyes: Denies change in vision or discharge from eye(s) ENT ENT ED: Denies discharge from eye(s), rhinorrhea or sore throat Cardiovascular Cardiovascular: Denies chest pain or palpitations Respiratory/Chest Respiratory/Chest: Denies cough or dyspnea Gastrointestinal Gastrointestinal: Reports abdominal pain; Denies diarrhea, nausea or vomiting Genitourinary Genitourinary ED: Denies difficulty urinating or dysuria Musculoskeletal Musculoskeletal: Reports back pain; Denies extremity pain Integumentary Denies Abrasions or rash Neurologic Neurologic: Denies headache(s) or weakness Allergic/Immunologic Allergic/Immunologic ED: Denies lip swelling or urticaria EXAM Physical Exam Const Vital Signs: 01/20/22 14:07 01/20/22 14:37 01/20/22 14:38 Temperature 98.2 F Temperature Source Temporal Pulse Rate 71 73 Respiratory Rate 16 Respiratory Effort Normal Respiratory Pattern Normal Blood Pressure 99/48 L 115/54 L Blood Pressure Mean 65 74 Pulse Ox 95 Oxygen Delivery Method Room Air 01/20/22 15:42 01/20/22 17:00 Temperature Temperature Source Pulse Rate 71 72 Respiratory Rate 24 H 22 H Respiratory Effort Respiratory Pattern Blood Pressure 109/57 L 126/62 H Blood Pressure Mean 74 83 Pulse Ox Oxygen Delivery Method Positive well nourished and well developed General Appearance ED: well developed HEENT Reports normocephalic and head/scalp atraumatic Eyes PERRL and EOMs intact bilaterally Neck supple Chest Wall inspection of chest normal and palpation of chest normal Resp normal respiratory effort and clear to auscultation bilaterally Cardio regular rate and regular rhythm GI normal to inspection, nondistended, normoactive bowel sounds Palpation: soft Back/Spine no CVA tenderness Back/Spine Narrative: Mild lumbar tenderness. No overlying skin changes. Extremity normal to inspection Neuro oriented x3 and no sensory deficits noted Sensorium / Orientation: alert Motor Exam: strength 5/5 throughout Psych mental status grossly normal Skin no rashes or lesions noted MDM MDM MDM Narrative Medical decision making narrative: Patient was given a small dose of fentanyl and Zofran for pain. IV fluids were given. Lab work and urinalysis ordered along with a CT flank. Lab Data Attestation: I reviewed the patient's lab results. Labs: Laboratory Results - last 24 hr 01/20/22 01/20/22 01/20/22 14:35 14:35 15:30 WBC 8.4 RBC 4.43 Hgb 12.7 Hct 41.9 MCV 94.6 MCH 28.7 MCHC 30.3 L RDW Std Deviation 52.4 H RDW Coeff of John 14.9 H Plt Count 264 MPV 10.1 Immature Gran % (Auto) 0.200 Neut % (Auto) 69.3 Lymph % (Auto) 20.7 Ware % (Auto) 8.1 Eos % (Auto) 1.1 Baso % (Auto) 0.6 Absolute Neuts (auto) 5.8 Absolute Lymphs (auto) 1.73 Nucleated RBC % 0 Sodium 140 Potassium 4.0 Chloride 105 Carbon Dioxide 29.0 Anion Gap 6 BUN 19 H Creatinine 0.70 Estim Creat Clear Calc 29.54 Est GFR (MDRD) Af Amer 103 Est GFR (MDRD) Non-Af 85 BUN/Creatinine Ratio 27.3 H Glucose 142 H Calcium 8.6 Total Bilirubin 0.40 Direct Bilirubin 0.08 AST 14 L ALT 15 Alkaline Phosphatase 99 Total Protein 6.3 L Albumin 3.1 L Globulin 3.2 Urine Color Yellow Urine Clarity Clear Urine pH 5.0 Ur Specific [place] 1.020 Urine Protein Negative Urine Glucose (UA) Normal Urine Ketones Negative Urine Occult Blood Negative Urine Nitrite Negative Urine Bilirubin Negative Urine Urobilinogen Normal Ur Leukocyte Esterase 25 H Urine RBC 0 SEEN Urine WBC 0-5 SEEN Ur Squamous Epith Cells 0-5 SEEN Urine Bacteria RARE Urine Mucus 0 SEEN Radiography Diagnostic Testing: Clinical Impression(s) from Imaging Studies Abdomen/Pelvis CT 01/20/22 15:13 IMPRESSION: No acute abnormalities in the abdomen or pelvis. Diverticulosis. Fatty liver. Electronically Signed: Fazal Epperson MD at 16:23 EDT , Treatment and Re-Evaluation Narrative: Lab work is unremarkable with normal renal function. Urinalysis reveals no acute infection. CT flank reveals no acute abnormalities. I spoke with Dr. Camacho. There was miscommunication. He states when he returned from vacation the CT report from January 05 was on his desk that revealed a 3 mm stone in the distal left ureter. He asked his staff to call the patient have her come into the office for follow-up just to make sure she was doing okay. He was unaware the patient had had recurrent CT scans on the and the . He reviewed all 4 CT scans were performed this month. There was a small kidney stone on the CT from the fifth, but it had resolved by the 10th. There is currently no evidence of kidney stone. At this time patient is reassured with these findings and will continue supportive care. Discharge Plan Triage Chief Complaint: Flank Pain ED Provider: Rhonda Horvath Dx/Rx/DC Orders Clinical Impression: Back pain, Flank pain Instructions: ED Back Pain (Acute or Chronic), ED Flank Pain, Uncertain Cause Prescriptions: No Action sertraline 100 MG tablet 100 mg PO QHS esomeprazole magnesium [Nexium] 20 MG capsule 40 mg PO DAILY PreserVision AREDS-2 1 EACH capsule 1 ea PO BID acetaminophen [Tylenol] 325 MG tablet 650 mg PO Q8 0RF valsartan 80 mg tablet 80 mg PO DAILY Label Comments: take 1 tablet by mouth once daily levothyroxine 50 mcg tablet 50 mcg PO DAILY Label Comments: take 1 tablet by mouth once daily fluticasone furoate-vilanterol [Breo Ellipta] 100-25 mcg/dose blister with device 1 inh INHALATION QHS Label Comments: inhale 1 puff by mouth and INTO THE LUNGS once daily WITH GOOD ORAL CARE AFTER USE polyethylene glycol 3350 [Miralax] 17 GM powder in packet 17 g PO DAILY acetaminophen [Tylenol] 325 mg tablet 325 mg PO Q6H PRN (Reason: fever or pain) Qty: 14 0RF oxycodone-acetaminophen [oxycodone-acetaminophen] 5-325 mg tablet 1 tab PO Q6H PRN PRN (Reason: pain) 5 Days Qty: 20 0RF ondansetron [ondansetron] 4 mg tablet,disintegrating 4 mg PO Q6H PRN PRN (Reason: Nausea) Qty: 15 0RF melatonin 10 mg Tablet 10 mg PO QHS magnesium citrate Solution 300 ml PO X1 PRN (Reason: constipation) Qty: 2 0RF Primary Care Provider: Jose Jc Referrals: Jose Jc MD [Primary Care Provider] - 1 Week Disposition Disposition: Home, Self Care
[2022-01-20] MEDS: fentaNYL 100 MCG/2 ML Ampul 12.5 MCG IV (15:26)
[2022-01-20] MEDS: Ondansetron 4 MG/2 ML Vial IV (15:26)
[2022-01-20 15:38] LABS: Mucous, Urine 0 SEEN /hpf (<or=2+); Red Blood Cells-Urine 0 SEEN /hpf (0-5)
[2022-01-20 15:42] VITALS: BP 109/57; PULSE 71; RESP 24
[2022-01-20 15:44] LABS: Absolute Lymphocyte Count 1.73 X10^3/uL (0.83-4.51); Absolute Neutrophil Count 5.8 X10^3/uL (2.0-7.7); Basophil# 0.05 X10^3/uL; Basophil% 0.6 % (0-1); Eosinophil# 0.09 X10^3/uL; Eosinophils% 1.1 % (0-5); Hematocrit 41.9 % (37-47); Hemoglobin 12.7 g/dL (12.0-15.0); Lymphocyte # 1.73 X10^3/ul (0.83-4.51); Lymphocyte % 20.7 % (19-41); Mean Corp Hgb Conc 30.3 g/dL (32-36); Mean Corpuscular Hgb 28.7 pg (27.0-32.0); Mean Corpuscular Volume 94.6 fL (81-99); Mean Platelet Vol. 10.1 fl (6.2-12.0); Monocyte# 0.68 X10^3/uL; Monocyte% 8.1 % (0-10); NRBC Flagged by Analyzer 0 % (0-5); Neutrophil % 69.3 % (47-70); Platelet Count 264 K/mm3 (150-450); RBC Distribution Width CV 14.9 % (11.6-14.6); RBC Distribution Width SD 52.4 fl (35.1-43.9); Red Blood Count 4.43 M/mm3 (4.2-5.4); White Blood Count 8.4 K/mm3 (4.4-11.0)
[2022-01-20 15:56] LABS: Color, Urine Yellow (Yellow); Glucose, Dipstick Normal (Normal); Ketone-Dipstick Negative (Negative); Leukocyte Esterase-Dipstick 25 /ul (Negative); Nitrite-Dipstick Negative (Negative); Occult Blood-Urine Negative /ul (Negative); Protein-Dipstick Negative (Negative); Urine Bilirubin Dipstick Negative (Negative); Urine Clarity Clear (Clear); Urine Urobilinogen Normal (Normal)
[2022-01-20 16:02] LABS: AST(SGOT) 14 U/L (15-37); Albumin, Serum 3.1 g/dL (3.2-5.0); Alkaline Phosphatase 99 U/L (45-117); BUN 19 mg/dL (7-18); BUN/Creat Ratio 27.3 RATIO (10-20); Calcium,Total 8.6 mg/dL (8.5-10.1); EST Glomerular Filtration Rate 85 mL/min (>60); Est Glom Filt Rate - Afr Amer 103 mL/min (>60); Estimated Creatinine Clearance 29.54 ml/min; Globulin 3.2 g/dL (2.2-4.2); Glucose 142 mg/dL (74-106); Protein, Total 6.3 g/dL (6.4-8.2)
[2022-01-20 16:03] LABS: Alanine Aminotransfer ALT/SGPT 15 U/L (13-56); Anion Gap 6 (5-15); Bilirubin, Direct 0.08 mg/dL (0.00-0.30); Chloride 105 mmol/L (98-107); Sodium Level 140 mmol/L (136-145)
[2022-01-20 16:07] LABS: Bacteria RARE /hpf (None Seen); White Blood Cells 0-5 SEEN /hpf (0-5)
[2022-01-20 16:08] LABS: Squamous Epithelial Cells - UA 0-5 SEEN /hpf (5-10)
[2022-01-20 17:00] VITALS: BP 126/62; PULSE 72; RESP 22
== END 2022-01-20 17:21 | disposition home or self-care (01) ==
PROVIDERS: Emergency Provider Emergency Medicine; PCP Family Medicine; Visit Provider Emergency Medicine
DX: R10.9 Unspecified abdominal pain (principal); M54.9 Dorsalgia, unspecified; I10 Essential (primary) hypertension; E03.9 Hypothyroidism, unspecified; J45.909 Unspecified asthma, uncomplicated; K21.9 Gastro-esophageal reflux disease without esophagitis; G47.30 Sleep apnea, unspecified; F32.A Depression, unspecified; Z78.0 Asymptomatic menopausal state; Z79.890 Hormone replacement therapy; Z87.891 Personal history of nicotine dependence
CPT/HCPCS: 74176; 80048; 80076; 81001; 85025; 87040; 87086; 87088; 96374; 96375; 99284; J2405

== ENCOUNTER → 2023-11-18 | Outpatient (CLI) | payer MEDICARE, SELFPAY ==
--- NOTE | 2023-11-18 11:06 | ECHOD_ITS ---
Reason For Study: SOB Procedure This was a 2D Doppler, Color Flow transthoracic echocardiogram. The study was technically difficult. Definity deferred due to inability to obtain IV access. Exam performed in department. Left Ventricle Normal LV size. The estimated ejection fraction is 65 %. Unable to assess diastolic dysfunction. No regional wall motion abnormalities noted. Right Ventricle Normal RV size. Normal systolic function. Atria The left atrium is mildly enlarged. Normal right atrium. No doppler evidence for ASD. Mitral Valve There is moderate to severe mitral annular calcification. There is no mitral valve stenosis. No mitral valve insufficiency. Tricuspid Valve There is no tricuspid stenosis. Trivial tricuspid valve insufficiency. Pulmonary artery systolic pressure is 40 mmHg. Aortic Valve Trisinus/trileaflet aortic valve. Aortic sclerosis, no stenosis. There is no aortic stenosis. No aortic valve insufficiency. Pulmonic Valve There is no pulmonic valvular stenosis. No pulmonic valve insufficiency. Great Vessels Normal aortic root. Pericardium/Pleural No pericardial effusion. MMode/2D Measurements & Calculations LVIDd: 3.9 cm IVSd: 1.0 cm Ao root diam: 3.7 cm LVIDs: 2.6 cm LVPWd: 1.2 cm FS: 33.7 % LAV(MOD-bp): 59.5 ml LA A4 area: 24.4 cm2 LA dimension(2D): 3.5 cm LAV(MOD-bp) Indexed: 35.7 ml/m2 LAV(MOD-sp2): 41.4 ml LAV(MOD-sp4): 77.0 ml TAPSE: 2.4 cm Time Measurements MV dec time: 0.23 sec Doppler Measurements & Calculations MV E max chicho: 81.8 cm/sec Lat Peak E' Chicho: 8.8 cm/sec Med Peak E' Chicho: 14.2 cm/sec MV A max chicho: 137.3 cm/sec E/E' lat: 9.3 E/E' med: 5.8 MV E/A: 0.60 MV V2 max: 137.5 cm/sec Ao V2 max: 140.3 cm/sec MV max P.6 mmHg MV dec slope: 363.8 cm/sec2 Ao max P.0 mmHg MV V2 mean: 69.6 cm/sec Ao V2 mean: 100.9 cm/sec MV mean P.3 mmHg Ao mean P.6 mmHg MV V2 VTI: 31.2 cm Ao V2 VTI: 27.5 cm AV (velocity ratio): 0.85 LV V1 max: 110.0 cm/sec PA V2 max: 134.6 cm/sec TR max chicho: 282.1 cm/sec LV V1 max P.9 mmHg PA V2 mean: 91.6 cm/sec TR max P.8 mmHg LV V1 mean P.9 mmHg LV V1 mean: 80.6 cm/sec LV V1 VTI: 23.3 cm ECHO/Echo Complete Interpretation Summary The estimated ejection fraction is 65 %. Unable to assess diastolic dysfunction. The left atrium is mildly enlarged. Ordering Physician: Kareem Dutton V Referring Physician: Kareem Dutton V Performed By: Inge Beckham RCS
== END | disposition home or self-care (01) ==
PROVIDERS: PCP Family Medicine; Referring Provider Internal Medicine Pulmonary Disease; Visit Provider Internal Medicine Pulmonary Disease
DX: R06.02 Shortness of breath (principal); I27.20 Pulmonary hypertension, unspecified
CPT/HCPCS: 93306

== ENCOUNTER 2024-04-05 11:59 | Emergency (ER) | payer MEDICARE, SELFPAY ==
[2024-04-05 12:01] VITALS: BP 161/100; PULSE 85; RESP 18; TEMP 36.9; O2SAT 96; BMI 28.5
--- NOTE | 2024-04-05 12:24 | EDS_ITS ---
<Statement entered by Steven Briscoe DO - 04/05/24 20:53> Patient was seen and examined with nurse hansa Patel All components of the history and physical confirmed and agreed. History of present illness and physical exam: Patient is a 81-year-old female with a history of kidney stones, PE, dementia who presented to the emergency department with a chief complaint of 1 week of worsening left-sided rib pain. Patient states that her pain does go around to the front and she also complains of pain in her back. States that she did recently travel to [place] for a wedding and returned 4 days ago. Patient denies any blood thinner medications. Patient states that she has had some shortness of breath with this. Patient is concerned that she had a kidney stone in the past and feels like this may be another kidney stone and that she went septic from her kidney stone. Review of systems: Agree with above Physical exam General: Patient lying in bed rest comfortably did not appear to in acute distress Head: Atraumatic, normocephalic Eyes: PERRL bilateral, EOMI bilateral, no conjunctival injection noted Neck: Soft, supple, trachea midline Cardiovascular: Regular rate and rhythm no murmurs gallops rubs noted Respiratory: Clear to auscultation bilaterally no rales rhonchi or wheeze noted Abdomen: Soft, nondistended, nontender to palpation, bowel sounds present x 4 Musculoskeletal: No midline tenderness palpation midline of the cervical, thoracolumbar spine Extremities: +5/5 strength noted in the bilateral upper and lower extremities, no pedal edema on exam, radial pulses +2/4 in the bilateral upper extremities Neurological: Patient following commands knew that she was at [facility] year is 2023 Skin: Warm, dry, intact MDM Patient is a 81-year-old female who presented to the emergency department with a chief complaint of left-sided rib/back pain. Patient will have a workup performed here on the differential diagnose includes Melamin to ACS, pneumonia, PE, upper respiratory infection second viral etiology. Once workup is obtained reviewed she will be reevaluated. Patient's CBC reviewed and showed no evidence leukocytosis white blood count normal at 10.9, hemoglobin stable at 14.7, platelet count was noted to be 273. Patient sodium was noted to be 137, potassium normal at 3.9, creatinine normal at 0.62. Patient's AST and ALT were 12 and 14 respectively. Patient's lipase was noted to be normal at 48, urinalysis did not reveal any evidence of infection. Patient's CTA of her chest was reviewed and showed a small left pleural effusion with evidence of basilar atelectasis more prominent at the left lung base. Patient CT abdomen pelvis with IV contrast showed a tiny left pleural effusion mild degree of hepatomegaly and fatty infiltration of liver small cyst in the anterior superior aspect of the right lobe of the liver. Scattered sigmoid diverticula hiatal hernia noted. Discussed results with the patient and she would like to go home at this point in time. Patient was encouraged return with worsening symptoms or concerns. She is to follow-up with her primary care physician outpatient setting. All question concerns answered she was discharged home. Final impression: Left rib pain Musculoskeletal strain Disposition: Patient will be discharged home in stable condition Supervising attending attestation: Steven ROMERO History of Present Illness Chief Complaint: Flank Pain Narrative Narrative: Patient is an 89-year-old female with history of kidney stones, pulmonary embolus, slight dementia who presents to the [facility] apartment with 1 week of worsening left-sided rib pain. Patient states this does go around the front, she also complains of pain to her back. Patient did go a long car ride for a wedding and returned home 4 days ago. Patient dates the pain is worse with movement, denies any shortness of breath, fever chills nausea or vomiting. Patient is concerned because she did have a kidney stone at 1 time and it did turn her septic and states it almost killed her. Patient is here with her daughter who also gives a lot of information. The daughter is more concerned because the patient does have dementia. [facility] Medical History Asthma CPAP (continuous positive airway pressure) dependence Depression DVT (deep venous thrombosis) Former smoker Gastric reflux History of echocardiogram History of irregular heartbeat History of steroid therapy History of stress test Hypertension Hypothyroidism Kidney stones Migraine headache Post-menopausal Pulmonary hypertension Septic shock Shortness of breath on exertion Sleep apnea Thyroid disease Walker as ambulation aid Wears hearing aid Home Medications ?Medication ?Instructions ?Recorded ?Last Taken ?Type esomeprazole magnesium 20 mg 40 mg PO DAILY 11/06/14 11/14/15 07:00 History capsule,delayed release (Nexium) sertraline 100 mg tablet 100 mg PO QHS 11/06/14 Unknown History vit C 250 mg-vit E 90 mg-zinc 40 1 ea PO BID 03/15/17 Unknown History mg-copper 1 [id number]-cpfsdz capsule (PreserVision AREDS-2) acetaminophen 325 mg tablet 650 mg (2 x 325 mg) PO Q8 03/18/17 Unknown Rx (Tylenol) fluticasone furoate 100 1 inh inhalation QHS 06/09/21 Unknown History mcg-vilanterol 25 mcg/dose inhalation powder (Breo Ellipta) levothyroxine 50 mcg tablet 50 mcg PO DAILY 06/09/21 Unknown History polyethylene glycol 3350 17 gram 17 g PO DAILY 06/09/21 Unknown History oral powder packet (Miralax) valsartan 80 mg tablet 80 mg PO DAILY 06/09/21 Unknown History acetaminophen 325 mg tablet 325 mg PO Q6H PRN fever or pain 06/10/21 Unknown Rx (Tylenol) #14 tabs ondansetron 4 mg disintegrating 4 mg PO Q6H PRN PRN Nausea #15 tabs 01/05/22 Unknown Rx tablet oxycodone-acetaminophen 5 mg-325 1 tab PO Q6H PRN PRN pain 5 days 01/05/22 Unknown Rx mg tablet #20 TABLETS melatonin 10 mg tablet 10 mg PO QHS 01/10/22 Unknown History magnesium citrate 300 ml PO X1 PRN constipation #2 01/11/22 Unknown Rx BOTTLES Allergy/AdvReac Type Severity Reaction Status Date / Time lisinopril Allergy Other Verified 04/05/24 12:01 Sulfa (Sulfonamide Allergy Hives Verified 04/05/24 12:01 Antibiotics) erythromycin base AdvReac Nausea/Vom/ Verified 04/05/24 12:01 Diarrhea ketorolac tromethamine (From AdvReac Nausea/Vom/ Verified 04/05/24 12:01 Toradol) Diarrhea morphine AdvReac Nausea/Vom/ Verified 04/05/24 12:01 Diarrhea Surgical History History of total knee replacement Hx of section Hx of colonoscopy Hx of cystoscopy Hx of hysterectomy Hx of surgical procedure Hx of surgical procedure Hx of surgical procedure Hx of surgical procedure Social History Smoking Status: Former smoker substance use type: does not use ROS ROS ED ROS Narrative Constitutional: Negative for fever, chills, weight loss, weakness Eyes: Negative for vision loss, vision change, double vision ENT: Negative for any sore throat, ear pain, congestion Cardiovascular: Negative for any chest pain, tightness, palpitations Respiratory: Negative for any cough, sputum production, hemoptysis, dyspnea, dyspnea on exertion, orthopnea Gastrointestinal: Negative for any abdominal pain, nausea, vomiting, diarrhea, constipation, blood in stool, blood in vomit : Negative for any urinary frequency, dysuria, retention, blood in urine Muscle skeletal: Negative for any neck pain. Positive for pain to the left lateral chest Neurological: Negative for any headache, syncope, dizziness Skin: Negative for any rashes, itching, abrasions, lacerations Psychiatric: Negative for any depression, anxiety, stress, suicidal ideation, homicidal ideation Hematologic: Negative for any excessive bruising, easy bleeding EXAM Physical Exam Narrative Exam Narrative: Vital signs reviewed. HEET: Head normocephalic atraumatic, TMs clear bilaterally. Posterior pharynx is clear, moist mucous membranes. Nares clear bilaterally. Neck: Supple with no lymphadenopathy or tenderness. No signs of meningismus. Cardiac: Regular rate and rhythm no murmurs gallops or rubs, equal peripheral pulses bilaterally. Respiratory: Lungs clear to auscultation bilaterally. Patient does have some anterior chest wall tenderness mostly on the lateral, posterior aspect of the lower lungs, ribs. Abdomen: Soft, nontender, nondistended. No abdominal bruit or pulsatile masses. No hepatosplenomegaly Extremities: No peripheral edema, no signs of gross trauma or deformity. Active full range of motion of all extremities. Neuro: Cranial nerves II through XII intact, no focal neurological deficits. Skin: Clean dry and intact with no rash, purpura, petechiae, vesicles or pustules. Backs/flank: No CVA tenderness, no midline spinal tenderness, no deformity. Pain is worse with movement. Psych: Normal mood and affect. No SI, HI or acute psychosis. Const Vital Signs: 04/05/24 12:01 04/05/24 14:37 Temperature 98.4 F 98.1 F Temperature Source Oral Temporal Pulse Rate 85 83 Respiratory Rate 18 16 Blood Pressure 161/100 H 127/87 H Blood Pressure Mean 120 100 Pulse Ox 96 94 Oxygen Delivery Method Room Air Room Air Positive well nourished and well developed General Appearance ED: well developed MDM MDM Lab Data Labs: Laboratory Results - last 24 hr 04/05/24 04/05/24 12:25 14:13 WBC 10.9 RBC 4.96 Hgb 14.7 Hct 46.6 MCV 94.0 MCH 29.6 MCHC 31.5 L RDW Std Deviation 50.8 H RDW Coeff of John 14.6 Plt Count 273 MPV 9.2 Immature Gran % (Auto) 0.400 Neut % (Auto) 73.0 H Lymph % (Auto) 17.9 L Casey % (Auto) 7.6 Eos % (Auto) 0.5 Baso % (Auto) 0.6 Absolute Neuts (auto) 8.0 H Absolute Lymphs (auto) 1.95 Nucleated RBC % 0 Sodium 137 Potassium 3.9 Chloride 104 Carbon Dioxide 29.0 Anion Gap 4 L BUN 10 Creatinine 0.62 Estim Creat Clear Calc 41.28 Est GFR (MDRD) Af Amer 116 Est GFR (MDRD) Non-Af 96 BUN/Creatinine Ratio 16.1 Glucose 116 H Calcium 9.5 Total Bilirubin 0.70 AST 12 L ALT 14 Alkaline Phosphatase 108 Total Protein 6.8 Albumin 3.5 Globulin 3.3 Albumin/Globulin Ratio 1.1 Lipase 48 Urine Color Straw Urine Clarity Clear Urine pH 7.0 Ur Specific [place] 1.005 Urine Protein Negative Urine Glucose (UA) Normal Urine Ketones Negative Urine Occult Blood Negative Urine Nitrite Negative Urine Bilirubin Negative Urine Urobilinogen Normal Ur Leukocyte Esterase Negative Urine RBC 0 SEEN Urine WBC 0 SEEN Ur Squamous Epith Cells 0-5 SEEN Urine Bacteria 0 SEEN Urine Mucus 0 SEEN Radiography Diagnostic Testing: Clinical Impression(s) from Imaging Studies Abdomen/Pelvis CT 04/05/24 13:14 IMPRESSION: Tiny left pleural effusion with bibasilar atelectasis. Mild degree of hepatomegaly and fatty infiltration of the liver. Small cyst in the anterior superior aspect of the right lobe of the liver. Scattered sigmoid diverticula. Hiatal hernia. Electronically Signed: Amauri Garg MD at 13:45 EDT , Chest CTA 04/05/24 13:14 IMPRESSION: No evidence of pulmonary embolism. Small left pleural effusion with evidence of bibasilar atelectasis more prominent at the left lung base. Electronically Signed: Amauri Garg MD at 13:48 EDT , Treatment and Re-Evaluation :: Differential diagnosis includes however is not limited to: Community-acquired pneumonia, pulmonary embolus, rib strain, acute obstructing uropathy, pyelonephritis, UTI Patient appears to be in no obvious distress vital signs are stable, nontoxic, presenting to the emergency department with complaints of left-sided rib pain, left back pain has been ongoing for greater than 1 week. Secondary the patient's age, history of pulmonary embolus, patient will see the CTA of the chest as well as a CT scan of the abdomen pelvis with IV contrast. Urinalysis, laboratory values will be done. Patient physical examination is concerning for a muscle skeletal strain however patient has no red flag signs. Patient be given 1 oxycodone as well as Zofran. All radiologic examinations were read, reviewed by the emergency department attending. From these reads, a plan of care will be put in place. Patient will be reevaluated. On reevaluation, the patient was resting comfortably. Patient responded well to the medicines. Patient CBC was negative. Patient's chemistries were unremarkable, lipase was negative. Patient's urinalysis was negative for any infection. Patient CT scan of the chest showed no pulmonary embolus, small left pleural effusion that the daughter does know about, CT scan of the abdomen pelvis showed mild degree of hepatomegaly a, fatty infiltration of liver, small cyst in the anterior superior aspect of the right lobe of the liver, scattered diverticula, no other acute process. At this time, do the patient is suffering most of muscle skeletal chest wall pain. Patient is agreeable with the plan, I spoke with the patient's daughter she is agreeable, patient stable for discharge Discharge Plan Triage Chief Complaint: Flank Pain ED Midlevel Provider: Jorge Ramirez ED Provider: Steven Briscoe Dx/Rx/DC Orders Clinical Impression: Chest wall muscle strain, Acute lumbar back pain Instructions: ED Back Pain (Acute or Chronic), ED Chest Wall Strain Prescriptions: No Action sertraline 100 MG tablet 100 mg PO QHS esomeprazole magnesium [Nexium] 20 MG capsule 40 mg PO DAILY PreserVision AREDS-2 1 EACH capsule 1 ea PO BID acetaminophen [Tylenol] 325 MG tablet 650 mg PO Q8 0RF valsartan 80 mg tablet 80 mg PO DAILY Patient Comments: take 1 tablet by mouth once daily levothyroxine 50 mcg tablet 50 mcg PO DAILY Patient Comments: take 1 tablet by mouth once daily fluticasone furoate-vilanterol [Breo Ellipta] 100-25 mcg/dose blister with device 1 inh INHALATION QHS Patient Comments: inhale 1 puff by mouth and INTO THE LUNGS once daily WITH GOOD ORAL CARE AFTER USE polyethylene glycol 3350 [Miralax] 17 GM powder in packet 17 g PO DAILY acetaminophen [Tylenol] 325 mg tablet 325 mg PO Q6H PRN (Reason: fever or pain) Qty: 14 0RF oxycodone-acetaminophen [oxycodone-acetaminophen] 5-325 mg tablet 1 tab PO Q6H PRN PRN (Reason: pain) 5 Days Qty: 20 0RF ondansetron [ondansetron] 4 mg tablet,disintegrating 4 mg PO Q6H PRN PRN (Reason: Nausea) Qty: 15 0RF melatonin 10 mg Tablet 10 mg PO QHS magnesium citrate Solution 300 ml PO X1 PRN (Reason: constipation) Qty: 2 0RF Primary Care Provider: Jose Jc Referrals: Jose Jc MD [Primary Care Provider] - Activity Restrictions/Additional Instructions: Please follow-up outpatient. Return for any worsening symptoms. Print Language: Chinese Disposition Disposition: Home, Self Care
[2024-04-05] MEDS: oxyCODONE 5 MG Tablet PO (12:36)
[2024-04-05] MEDS: Ondansetron 4 MG/2 ML Vial IV (12:37)
[2024-04-05 12:45] LABS: Absolute Lymphocyte Count 1.95 X10^3/uL (0.83-4.51); Basophil# 0.06 X10^3/uL; Basophil% 0.6 % (0-1); Eosinophil# 0.05 X10^3/uL; Eosinophils% 0.5 % (0-5); Hematocrit 46.6 % (37-47); Hemoglobin 14.7 g/dL (12.0-15.0); Lymphocyte # 1.95 X10^3/ul (0.83-4.51); Lymphocyte % 17.9 % (19-41); Mean Corp Hgb Conc 31.5 g/dL (32-36); Mean Corpuscular Hgb 29.6 pg (27.0-32.0); Mean Platelet Vol. 9.2 fl (6.2-12.0); Monocyte# 0.83 X10^3/uL; Monocyte% 7.6 % (0-10); NRBC Flagged by Analyzer 0 % (0-5); Neutrophil # 7.97 X10^3/uL (2.7-7.7); Platelet Count 273 K/mm3 (150-450); RBC Distribution Width CV 14.6 % (11.6-14.6); RBC Distribution Width SD 50.8 fl (35.1-43.9); Red Blood Count 4.96 M/mm3 (4.2-5.4); White Blood Count 10.9 K/mm3 (4.4-11.0)
[2024-04-05 13:04] LABS: ALB/GLOB Ratio 1.1 RATIO (0.9-2.4); AST(SGOT) 12 U/L (15-37); Alanine Aminotransfer ALT/SGPT 14 U/L (13-56); Albumin, Serum 3.5 g/dL (3.2-5.0); Alkaline Phosphatase 108 U/L (45-117); Anion Gap 4 (5-15); BUN 10 mg/dL (7-18); BUN/Creat Ratio 16.1 RATIO (10-20); Calcium,Total 9.5 mg/dL (8.5-10.1); Chloride 104 mmol/L (98-107); Creatinine, Serum 0.62 mg/dL (0.55-1.02); EST Glomerular Filtration Rate 96 mL/min (>60); Est Glom Filt Rate - Afr Amer 116 mL/min (>60); Estimated Creatinine Clearance 41.28 ml/min; Globulin 3.3 g/dL (2.2-4.2); Glucose 116 mg/dL (74-106); Lipase 48 U/L (13-75); Potassium 3.9 mmol/L (3.5-5.1); Protein, Total 6.8 g/dL (6.4-8.2); Sodium Level 137 mmol/L (136-145)
--- NOTE | 2024-04-05 13:14 | CT_ITS ---
STUDY: CTA CHEST REASON FOR EXAM: Female, 89 years old. Chest pain RADIATION DOSAGE (If Supplied By Facility): CTDIvol = ( 17.89 ) mGy, DLP = ( 1621.04 ) mGycm TECHNIQUE: The examination was performed with the intravenous administration of IV 75mL Isovue-370. Post-processing of the angiographic images was performed, with multiplanar reformation and 3D reconstruction. Individualized dose optimization techniques were used for this CT. COMPARISON: Comparison is made with prior CT scan of the chest dated March 15, 2017. FINDINGS: Normal enhancement of the main pulmonary artery and right and left pulmonary arteries. Normal enhancement of the bilateral peripheral pulmonary arteries. There is no demonstrated pulmonary embolism. There is atherosclerotic calcification of the aortic arch with tortuosity. There is no demonstrated aortic dissection. Normal heart and pericardium. Normal mediastinum. Normal hilar regions. Normal visualized trachea and bronchi. The lungs are well expanded. Small left pleural effusion with evidence of bibasilar atelectasis. More prominent at the left lung base. Normal chest wall structures. There are degenerative changes of thoracic spine. Hiatal hernia. CT/CTA Chest W/WO Contrast IMPRESSION: No evidence of pulmonary embolism. Small left pleural effusion with evidence of bibasilar atelectasis more prominent at the left lung base. Electronically Signed: Amauri Garg MD at 13:48 EDT ,
--- NOTE | 2024-04-05 13:14 | CT_ITS ---
STUDY: CT ABDOMEN AND PELVIS WITH CONTRAST REASON FOR EXAM: Female, 89 years old. Left flank pain RADIATION DOSAGE (If Supplied By Facility): CTDIvol = ( 17.89 ) mGy, DLP = ( 1621.04 ) mGycm TECHNIQUE: Transaxial images were obtained from the dome of the diaphragm to the symphysis pubis without oral contrast. IV 75mL Isovue-370 was administered. Sagittal and coronal images were reconstructed. Individualized dose optimization techniques were used for this CT. COMPARISON: Comparison is made with prior study dated January 20, 2022. FINDINGS: Tiny left pleural effusion with bibasilar atelectasis more prominent at the left lung base. Coronary artery calcification. There is a 1 cm hypodensity in the anterior superior aspect of the right lobe of the liver suggestive of a small cyst. Mild hepatomegaly. Mild degree of fatty infiltration of the liver. Normal gallbladder and extrahepatic biliary system. Normal spleen. There is diffuse atrophy of the pancreas. Normal bilateral adrenal glands. There is a 1.3 cm cyst in the anterior midportion of the right kidney. Normal left kidney. Moderate-sized hiatal hernia. Normal small intestine. There are scattered colonic diverticula consistent with diverticulosis. The appendix is visualized and appears normal. There is scattered atherosclerotic calcification of the abdominal aorta, without a demonstrated aneurysm. Normal inferior vena cava. Normal retroperitoneum. Normal urinary bladder. There is absence of the uterus consistent with a prior hysterectomy. Normal abdominal wall. There are diffuse degenerative changes of the visualized lumbar spine. Levoconvex scoliosis. CT/Abdomen/Pelvis W IV Cont ONLY IMPRESSION: Tiny left pleural effusion with bibasilar atelectasis. Mild degree of hepatomegaly and fatty infiltration of the liver. Small cyst in the anterior superior aspect of the right lobe of the liver. Scattered sigmoid diverticula. Hiatal hernia. Electronically Signed: Amauri Garg MD at 13:45 EDT ,
[2024-04-05 14:25] LABS: Bacteria 0 SEEN /hpf (None Seen); Mucous, Urine 0 SEEN /hpf (<or=2+); Red Blood Cells-Urine 0 SEEN /hpf (0-5); White Blood Cells 0 SEEN /hpf (0-5)
[2024-04-05 14:31] LABS: Color, Urine Straw (Yellow); Glucose, Dipstick Normal (Normal); Ketone-Dipstick Negative (Negative); Leukocyte Esterase-Dipstick Negative /ul (Negative); Nitrite-Dipstick Negative (Negative); Occult Blood-Urine Negative /ul (Negative); Protein-Dipstick Negative (Negative); Specific Gravity, Urine 1.005 (1.002-1.030); Urine Bilirubin Dipstick Negative (Negative); Urine Clarity Clear (Clear); Urine Urobilinogen Normal (Normal)
[2024-04-05 14:37] VITALS: BP 127/87; PULSE 83; RESP 16; TEMP 36.7; O2SAT 94
[2024-04-05 14:38] LABS: Squamous Epithelial Cells - UA 0-5 SEEN /hpf (5-10)
== END 2024-04-05 15:29 | disposition home or self-care (01) ==
PROVIDERS: Nurse Practitioner; Emergency Provider Emergency Medicine; PCP Family Medicine; Referring Provider Emergency Medicine; Visit Provider Emergency Medicine
DX: S29.011A Strain of muscle and tendon of front wall of thorax, initial encounter (principal); F03.90 Unspecified dementia, unspecified severity, without behavioral disturbance, psychotic disturbance, mood disturbance, and anxiety; X58.XXXA Exposure to other specified factors, initial encounter; M54.50 Low back pain, unspecified; J98.11 Atelectasis; K76.0 Fatty (change of) liver, not elsewhere classified; R16.0 Hepatomegaly, not elsewhere classified; I10 Essential (primary) hypertension; K57.30 Diverticulosis of large intestine without perforation or abscess without bleeding; Z79.890 Hormone replacement therapy; Z79.899 Other long term (current) drug therapy; Z90.710 Acquired absence of both cervix and uterus; Z87.891 Personal history of nicotine dependence; Z87.442 Personal history of urinary calculi
CPT/HCPCS: 71275; 74177; 80053; 81001; 83690; 85025; 96374; 99282; Q9967; A4216; J2405

== ENCOUNTER 2025-03-25 14:13 | Emergency (ER) | payer MEDICARE, SELFPAY ==
[2025-03-25] VITALS (16 sets, daily range): BP systolic 144–172; BP diastolic 68–124; PULSE 67–90; RESP 11–26; TEMP 36.5–36.9; O2SAT 94–97; BMI 28.1
--- NOTE | 2025-03-25 14:49 | EKG12_ITS ---
Test Reason : DIZZY Blood Pressure : */* mmHG Vent. Rate : 68 BPM Atrial Rate : 68 BPM P-R Int : 138 ms QRS Dur : 84 ms QT Int : 408 ms P-R-T Axes : 23 -37 6 degrees QTcB Int : 433 ms Normal sinus rhythm Left axis deviation Abnormal ECG Confirmed by JOSSE LOYOLA, KAYY ([id number]), newspaper managing editor MOISES ABRAHAM ([id number]) on 03/26/2025 7:32:00 AM Referred By: Confirmed By: KAYY LOAIZA MD
[2025-03-25 15:48] LABS: Hematocrit 44.3 % (37-47); Hemoglobin 14.4 g/dL (12.0-15.0); Immature Granulocytes Count 0.040 X10^3/uL (0.0-0.0); Mean Corp Hgb Conc 32.5 g/dL (32-36); Mean Corpuscular Volume 93.9 fL (81-99); Mean Platelet Vol. 10.3 fl (6.2-12.0); NRBC Flagged by Analyzer 0 % (0-5); Platelet Count 285 K/mm3 (150-450); RBC Distribution Width CV 13.5 % (11.6-14.6); RBC Distribution Width SD 46.8 fl (35.1-43.9); Red Blood Count 4.72 M/mm3 (4.2-5.4); White Blood Count 9.7 K/mm3 (4.4-11.0)
[2025-03-25 16:21] LABS: Anion Gap 11 (5-15); BUN 13 mg/dL (4-19); BUN/Creat Ratio 20.6 RATIO (10-20); Calcium,Total 9.5 mg/dL (7.6-11.0); Carbon Dioxide 24.7 mmol/L (21.0-32.0); Chloride 102 mmol/L (98-108); Estimated Creatinine Clearance 40.21 ml/min (50-250); Glucose 78 mg/dL (70-99); Potassium 4.4 mmol/L (3.3-5.1)
[2025-03-25 16:35] LABS: Mucous, Urine 0 SEEN /hpf (<or=2+); Red Blood Cells-Urine 0 SEEN /hpf (0-5)
--- NOTE | 2025-03-25 17:42 | ED.RN ---
lab called for outstanding urine. response it will be 15 minutes about.
[2025-03-25 17:43] LABS: Color, Urine Yellow (Yellow); Glucose, Dipstick Normal (Normal); Ketone-Dipstick Negative (Negative); Leukocyte Esterase-Dipstick Negative /ul (Negative); Nitrite-Dipstick Negative (Negative); Occult Blood-Urine Negative /ul (Negative); Protein-Dipstick 15 mg/dl (Negative); Specific Gravity, Urine 1.010 (1.002-1.030); Urine Bilirubin Dipstick Negative (Negative)
[2025-03-25 17:57] LABS: Squamous Epithelial Cells - UA 0-5 SEEN /hpf (5-10)
--- NOTE | 2025-03-26 00:12 | EDS_ITS ---
HPI History of Present Illness Chief Complaint: Dizziness Narrative Narrative: Patient is a 89-year-old female presenting to the emergency department with intermittent vertigo. Patient has a past medical history of PE. Patient lives at home with daughter who presents with her at bedside. Patient states that since yesterday at 11 AM she has had about 3-4 episodes of intermittent vertigo. Reports that they last less than 10 minutes at a time. Denies any dizziness at time of evaluation. Denies any headache, new visual changes from baseline, speech difficulty, numbness or weakness in her extremities. States when she has the vertigo she has difficulty ambulating but when she is not feeling the vertigo she can ambulate fine with her walker. She denies any fevers, chills, chest pain, shortness of breath, abdominal pain, nausea, vomiting, diarrhea. She did see her primary care doctor earlier today and they checked her for a UTI which daughter was concerned about. No recent falls or head trauma. [facility] Medical History Dementia Hypothyroidism DVT (deep venous thrombosis) Wears hearing aid Depression Post-menopausal History of steroid therapy Thyroid disease Walker as ambulation aid Kidney stones Migraine headache Gastric reflux Former smoker CPAP (continuous positive airway pressure) dependence Sleep apnea Pulmonary hypertension Asthma Shortness of breath on exertion History of stress test History of echocardiogram Hypertension History of irregular heartbeat Septic shock Home Medications ?Medication ?Instructions ?Recorded ?Last Taken ?Type sertraline 100 mg tablet 100 mg PO QHS 11/06/1403/24 History vit C 250 mg-vit E 90 mg-zinc 40 1 ea PO BID 03/15/17 03/25/25 History mg-copper 1 [id number] capsule (PreserVision AREDS-2) fluticasone furoate 100 1 inh inhalation QHS 1 03/24/25 History mcg-vilanterol 25 mcg/dose inhalation powder (Breo Ellipta) levothyroxine 50 mcg tablet 50 mcg PO DAILY 06/09/21 0 03/25/25 History polyethylene glycol 3350 17 gram 17 g PO DAILY PRN con stipation 06/09/21 Unknown History oral powder packet (Miralax) valsartan 80 mg tablet 80 mg PO DAILY 06/09/2103/05 History melatonin 10 mg tablet 10 mg PO QHS 01/10/22 History Lactobacillus rhamnosus GG 10 1 cap PO DAILY 03/25/25 03/25/25 History billion cell capsule (Culturelle) PREVAGEN 1 tab PO DAILY 03/25/2503/05 History acetaminophen 500 mg capsule 1,000 mg PO BID 03/25/25 03/25/25 History bimatoprost 0.01 % eye drops 1 drp ophthalmic (eye) DA LULI 03/25/25 03/24/25 History (Lumigan) citalopram 40 mg tablet 40 mg PO DAILY 03/25/2503/05 History esomeprazole magnesium 40 mg 40 mg PO DAILY 03/25/25 0 03/25/25 History capsule,delayed release meclizine 25 mg tablet 25 mg PO DAILY PRN dizziness #7 03/25/25 Unknown Rx tabs Allergy/AdvReac Type Severity Reaction Status Date / Time lisinopril Allergy Other Verified 03/25/25 14:14 Sulfa (Sulfonamide Allergy Hives Verified 03/25/25 14:14 Antibiotics) cyclobenzaprine (From AdvReac NEEDS Verified 03/25/25 15:29 Flexeril) FOLLOW-UP erythromycin base AdvReac Nausea/Vom/ Verified 03/25/25 14:14 Diarrhea ketorolac tromethamine (From AdvReac Nausea/Vom/ Verified 03/25/25 14:14 Toradol) Diarrhea morphine AdvReac Nausea/Vom/ Verified 03/25/25 14:14 Diarrhea Surgical History Hx of colonoscopy Hx of section Hx of hysterectomy History of total knee replacement Hx of cystoscopy Hx of surgical procedure Hx of surgical procedure Hx of surgical procedure Hx of surgical procedure Social History Smoking Status: Former smoker substance use type: does not use ROS ROS ED ROS Narrative see HPI EXAM Physical Exam Narrative Exam Narrative: Vital signs: Reviewed General: Alert and oriented x 3. No acute distress HEENT: Head is normocephalic and atraumatic, sinuses nontender, pupils equal round and reactive. Nares are patent. Oropharynx and throat exams normal. Neck: Supple without lymphadenopathy nontender Cardiovascular: Regular rate and rhythm, no murmurs. No rubs or gallops. Normal S1 and S2 Respiratory: Clear to auscultation bilaterally. No wheezes, rales, rhonchi Abdominal: Soft and nontender. Normal bowel sounds. No guarding or rebound. Nonsurgical abdomen Extremities: No tenderness. No bruising. Normal range of motion. Normal sensation. Skin: No rash or redness. The rest of the physical exam is unremarkable Const Vital Signs: 03/25/25 14:14 03/25/25 15:00 03/25/25 15:04 Temperature 98.4 F Temperature Source Oral Pulse Rate 81 Pulse Rate [Lying] 76 Pulse Rate [Sitting (for 1 minute prior to obtaining)] 67 Pulse Rate [Standing (for 1 minute prior to obtaining)] 90 Respiratory Rate 16 Blood Pressure 148/97 H Blood Pressure [Lying] 171/81 H Blood Pressure [Sitting (for 1 minute prior to obtaining)] 168/76 H Blood Pressure [Standing (for 1 minute prior to obtaining)] 169/89 H Blood Pressure Mean 114 Blood Pressure Mean [Lying] 111 Blood Pressure Mean [Sitting (for 1 minute prior to obtaining)] 106 Blood Pressure Mean [Standing (for 1 minute prior to obtaining)] 115 Pulse Ox 95 Oxygen Delivery Method Room Air Room Air 03/25/25 15:04 03/25/25 15:42 03/25/25 15:45 Temperature Temperature Source Pulse Rate 74 71 70 Pulse Rate [Lying] Pulse Rate [Sitting (for 1 minute prior to obtaining)] Pulse Rate [Standing (for 1 minute prior to obtaining)] Respiratory Rate 24 H 21 H 26 H Blood Pressure 169/84 H 162/82 H Blood Pressure [Lying] Blood Pressure [Sitting (for 1 minute prior to obtaining)] Blood Pressure [Standing (for 1 minute prior to obtaining)] Blood Pressure Mean 112 106 Blood Pressure Mean [Lying] Blood Pressure Mean [Sitting (for 1 minute prior to obtaining)] Blood Pressure Mean [Standing (for 1 minute prior to obtaining)] Pulse Ox 95 97 97 Oxygen Delivery Method Room Air Room Air 03/25/25 16:00 03/25/25 16:15 03/25/25 16:30 Temperature Temperature Source Pulse Rate 69 68 77 Pulse Rate [Lying] Pulse Rate [Sitting (for 1 minute prior to obtaining)] Pulse Rate [Standing (for 1 minute prior to obtaining)] Respiratory Rate 17 15 14 Blood Pressure 147/93 H 144/88 H 147/95 H Blood Pressure [Lying] Blood Pressure [Sitting (for 1 minute prior to obtaining)] Blood Pressure [Standing (for 1 minute prior to obtaining)] Blood Pressure Mean 107 106 107 Blood Pressure Mean [Lying] Blood Pressure Mean [Sitting (for 1 minute prior to obtaining)] Blood Pressure Mean [Standing (for 1 minute prior to obtaining)] Pulse Ox 94 95 97 Oxygen Delivery Method Room Air Room Air 03/25/25 16:45 03/25/25 17:00 03/25/25 17:15 Temperature Temperature Source Pulse Rate 68 Pulse Rate [Lying] Pulse Rate [Sitting (for 1 minute prior to obtaining)] Pulse Rate [Standing (for 1 minute prior to obtaining)] Respiratory Rate 12 Blood Pressure 162/86 H 162/68 H 148/85 H Blood Pressure [Lying] Blood Pressure [Sitting (for 1 minute prior to obtaining)] Blood Pressure [Standing (for 1 minute prior to obtaining)] Blood Pressure Mean 107 96 105 Blood Pressure Mean [Lying] Blood Pressure Mean [Sitting (for 1 minute prior to obtaining)] Blood Pressure Mean [Standing (for 1 minute prior to obtaining)] Pulse Ox 95 Oxygen Delivery Method Room Air 03/25/25 17:30 03/25/25 17:45 03/25/25 18:00 Temperature Temperature Source Pulse Rate 68 69 74 Pulse Rate [Lying] Pulse Rate [Sitting (for 1 minute prior to obtaining)] Pulse Rate [Standing (for 1 minute prior to obtaining)] Respiratory Rate 16 14 11 L Blood Pressure 155/124 H 162/95 H 172/85 H Blood Pressure [Lying] Blood Pressure [Sitting (for 1 minute prior to obtaining)] Blood Pressure [Standing (for 1 minute prior to obtaining)] Blood Pressure Mean 135 113 112 Blood Pressure Mean [Lying] Blood Pressure Mean [Sitting (for 1 minute prior to obtaining)] Blood Pressure Mean [Standing (for 1 minute prior to obtaining)] Pulse Ox 97 95 Oxygen Delivery Method Room Air Room Air 03/25/25 19:00 03/25/25 19:39 Temperature 97.7 F L Temperature Source Pulse Rate 71 71 Pulse Rate [Lying] Pulse Rate [Sitting (for 1 minute prior to obtaining)] Pulse Rate [Standing (for 1 minute prior to obtaining)] Respiratory Rate 14 14 Blood Pressure 168/92 H 168/92 H Blood Pressure [Lying] Blood Pressure [Sitting (for 1 minute prior to obtaining)] Blood Pressure [Standing (for 1 minute prior to obtaining)] Blood Pressure Mean 117 117 Blood Pressure Mean [Lying] Blood Pressure Mean [Sitting (for 1 minute prior to obtaining)] Blood Pressure Mean [Standing (for 1 minute prior to obtaining)] Pulse Ox 96 96 Oxygen Delivery Method Room Air NIHSS NIHSS Initial: 1a Level of Consciousness: 0 1b LOC Questions (Score 2 if aphasic/stupor): 0 1c LOC Commands (Only score 1st attempt): 0 2 Best Gaze (If aphasic, use reflexive mvmts.): 0 3 Visual: 0 4 Facial Palsy: 0 5 Motor Arm Right (UN = amputation/fusion): 0 5 Motor Arm Left: 0 6 Motor Leg Right: 0 6 Motor Leg Left: 0 7 Limb ataxia (Only + if out of proportion): 0 8 Sensory (Aphasia/stupor=0 or 1, coma=2): 0 9 Best Language: 0 10 Dysarthria (mute, coma=2, intubated=UN): 0 11 Extinction and Inattention (only scored if +): 0 Total Score: 0 MDM MDM MDM Narrative Medical decision making narrative: Patient is a 89-year-old female presenting to emergency department with intermittent vertigo. Patient was seen and examined. Vitals are stable. Patient resting bed comfortably no acute distress. Differential includes but is not limited to: Central versus peripheral cause of vertigo, UTI, electrolyte abnormality, anemia, cardiac cause of dizziness CBC with no leukocytosis and normal hemoglobin. BMP with no significant normalities. Glucose within normal limits at 78. Urinalysis with no evidence of UTI, urine culture sent at daughter's request. EKG shows normal sinus rhythm with left axis deviation. No ischemic changes. No dysrhythmia. Patients NIH of 0. She has no vertigo at time of evaluation. However on further examination, when she turns her head to the right she develops the vertigo. Unlikely to be central cause of vertigo such as cerebellar stroke given it is intermittent and is associated with specific head movement. She was given meclizine and on reevaluation after this has no episodes of vertigo even with head movement. She has no tinnitus, recent URI history. She was able to ambulate to and from the restroom with no episodes of dizziness and feeling normal she states. She was using her walker. I prescribed a short course of meclizine for home for the patient to use once daily as needed for vertigo. Daughter and patient feel comfortable being discharged and will return at any time if she develops any persistent vertigo or any other strokelike symptoms. This was extensively discussed with daughter and patient at bedside and they feel comfortable with the plan. Patient discharged from the Emergency Department. I do not feel that the patient's evaluation reveals any acute reason for admission at this time. I instructed them to either follow-up with their primary care physician or promptly return to the Emergency Department for reevaluation should symptoms worsen or new symptoms develop. I explained what symptoms would indicate the need to return to the emergency department. Shared decision making was used. The patient voiced understanding of the treatment plan and is agreeable with it. Clinical impression Intermittent vertigo History & Record Review Discussion w/independent historian: Patient and Family Lab Data Attestation: I reviewed the patient's lab results. Labs: Laboratory Results - last 24 hr 03/25/25 03/25/25 03/25/25 14:56 15:09 16:28 WBC 9.7 RBC 4.72 Hgb 14.4 Hct 44.3 MCV 93.9 MCH 30.5 MCHC 32.5 RDW Std Deviation 46.8 H RDW Coeff of John 13.5 Plt Count 285 MPV 10.3 Immature Gran % (Auto) 0.400 Neut % (Auto) 67.9 Lymph % (Auto) 23.2 [place] % (Auto) 7.6 Eos % (Auto) 0.4 Baso % (Auto) 0.5 Absolute Neuts (auto) 6.6 Absolute Lymphs (auto) 2.26 Nucleated RBC % 0 Sodium 138 Potassium 4.4 Chloride 102 Carbon Dioxide 24.7 Anion Gap 11 BUN 13 Creatinine 0.61 L Estim Creat Clear Calc 40.21 L Est GFR (MDRD) Non-Af 86 BUN/Creatinine Ratio 20.6 H Glucose 78 Calcium 9.5 Urine Color Yellow Urine Clarity Clear Urine pH 7.0 Ur Specific [place] 1.010 Urine Protein 15 H Urine Glucose (UA) Normal Urine Ketones Negative Urine Occult Blood Negative Urine Nitrite Negative Urine Bilirubin Negative Urine Urobilinogen Normal Ur Leukocyte Esterase Negative Urine RBC 0 SEEN Urine WBC 0-5 SEEN Ur Squamous Epith Cells 0-5 SEEN Urine Bacteria 0 SEEN Hyaline Casts 0-5 SEEN Urine Mucus 0 SEEN POC Glucose 83 Discharge Plan Triage Chief Complaint: Dizziness ED Provider: Joanie Hyde Dx/Rx/DC Orders Clinical Impression: Intermittent vertigo Instructions: ED Dizziness, Uncertain Cause, ED Vertigo, Unspecified Prescriptions: New meclizine 25 mg tablet 25 mg PO DAILY PRN (Reason: dizziness) Qty: 7 0RF No Action sertraline 100 MG tablet 100 mg PO QHS PreserVision AREDS-2 1 EACH capsule 1 ea PO BID valsartan 80 mg tablet 80 mg PO DAILY Patient Comments: take 1 tablet by mouth once daily levothyroxine 50 mcg tablet 50 mcg PO DAILY Patient Comments: take 1 tablet by mouth once daily fluticasone furoate-vilanterol [Breo Ellipta] 100-25 mcg/dose blister with device 1 inh INHALATION QHS Patient Comments: inhale 1 puff by mouth and INTO THE LUNGS once daily WITH GOOD ORAL CARE AFTER USE polyethylene glycol 3350 [Miralax] 17 GM powder in packet 17 g PO DAILY PRN (Reason: constipation) melatonin 10 mg Tablet 10 mg PO QHS citalopram 40 mg tablet 40 mg PO DAILY esomeprazole magnesium 40 mg capsule,delayed release(DR/EC) 40 mg PO DAILY Lumigan 0.01 % drops 1 drp ophthalmic (eye) DAILY acetaminophen 500 mg capsule 1,000 mg PO BID Culturelle 10 billion cell capsule 1 cap PO DAILY PREVAGEN 1 tab PO DAILY Primary Care Provider: Jose Jc Referrals: Jose Jc MD [Primary Care Provider, [facility]] - As soon as possible Activity Restrictions/Additional Instructions: Take the meclizine 1 tablet as needed for dizziness once a day. Follow-up with your primary care doctor as soon as possible and return if the dizziness becomes consistent or if you develop any new symptoms. Your evaluation in the Emergency Department did not reveal any acute reason for admission. However, I want to emphasize that you may be early in the course of a disease process or illness even if it is not present. For this reason you should follow-up within 24 hours for reevaluation with either your primary care physician or if necessary back here in the Emergency Department. You should return to the Emergency Department immediately if your symptoms worsen or new symptoms develop. Print Language: Turkmen Disposition Disposition: Home, Self Care Discharge Date/Time: 03/25/25 19:40
== END 2025-03-25 19:40 | disposition home or self-care (01) ==
PROVIDERS: Emergency Provider Student in an Organized Health Care Education/Training Program; PCP Family Medicine; Visit Provider Student in an Organized Health Care Education/Training Program
DX: R42 Dizziness and giddiness (principal); R26.2 Difficulty in walking, not elsewhere classified; I10 Essential (primary) hypertension; E03.9 Hypothyroidism, unspecified; J45.909 Unspecified asthma, uncomplicated; Z79.890 Hormone replacement therapy; Z79.899 Other long term (current) drug therapy; Z87.891 Personal history of nicotine dependence; Z86.718 Personal history of other venous thrombosis and embolism; Z86.711 Personal history of pulmonary embolism
CPT/HCPCS: 80048; 81001; 82962; 85025; 87086; 87088; 93005; 99285; A4216